=== PATIENT | male | born 1995 | race Caucasian/White ===

== ENCOUNTER 2022-09-11 09:16 | Emergency (ER) | payer BC ==
[2022-09-11 09:23] VITALS: TEMP 97.9
[2022-09-11] MEDS ORDERED: KETOROLAC 15 MG/ML 1 ML VIAL IVP STA (09:45)
[2022-09-11] MEDS ORDERED: DEXAMETHASONE SOD PHOSPHATE 10 MG/ML 1 ML VIAL IVP STA (09:45)
[2022-09-11] MEDS ORDERED: METOCLOPRAMIDE 5 MG/ML 2 ML VIAL IVP STA (09:45)
[2022-09-11] MEDS ORDERED: SODIUM CHLORIDE 0.9% 1,000 ML IV STA (09:45)
[2022-09-11] MEDS ORDERED: diphenhydrAMINE 50 MG/ML 1 ML VIAL IVP STA (09:45)
--- NOTE | 2022-09-11 10:01 | ED ---
Headache HPI - General Chief Complaint: Headache Stated Complaint: Migraine Time Seen by Provider: 09/11/22 09:25 Source: patient, RN notes reviewed Mode of arrival: ambulatory Limitations: no limitations - History of Present Illness Initial Comments: This is a 26-year-old male who presents to the emergency department for a migraine. Patient states that he has a history of migraines that have been present over the last several years. They're often in the right retro-orbital region. However, over the last several weeks, these have moved to the left retro-orbital and temporal region. While he has had these headaches for several years, he has never had any workup done such as imaging of the brain. He took Excedrin Migraine with no relief of symptoms. He has never been on any migraine preventative or abortive medications, and states that he always takes Excedrin Migraine. This migraine has been worse over the last 2-3 days. This morning, he developed a sharp pain and was laying on the floor due to the severity of his symptoms. He originally went to urgent care, who instructed him to come to the emergency department for further evaluation. He has associated photophobia and mild blurring of vision in the left eye. He is not currently nauseous, but states that he typically gets there. He would not describe this as the worst headache of his life. Denies any fevers, chills, sore throat, cough, dyspnea, chest pain, palp itations, abdominal pain, nausea, vomiting, diarrhea, or back pain. MD Complaint: headache Location: left, temporal, retro-orbital - Related Data Previous Rx's Medication Instructions Recorded Ketorolac [Toradol] 10 mg PO Q6HR PRN #12 tab 09/11/22 Ondansetron Odt [Zofran Odt] 4 mg PO Q8HR PRN #15 tab 09/11/22 SUMAtriptan succinate 100 mg PO DIRECTED PRN #20 09/11/22 tablet Allergies Allergy/AdvReac Type Severity Reaction Status Date / Time Penicillins Allergy Rash/Hives Verified 09/11/22 11:23 Review of Systems ROS Statement: Those systems with pertinent positive or pertinent negative responses have been documented in the HPI. ROS Other: All systems not noted in ROS Statement are negative. Past Medical History Additional Past Medical History / Comment(s): Migraine History of Any Multi-Drug Resistant Organisms: None Reported Past Surgical History: No Surgical Hx Reported Past Psychological History: No Psychological Hx Reported Smoking Status: Former smoker Past Alcohol Use History: Occasional Past Drug Use History: None Reported General Exam Limitations: no limitations General appearance: alert, in no apparent distress Head exam: Present: atraumatic, normocephalic, normal inspection Eye exam: Present: normal appearance, PERRL, EOMI. Absent: scleral icterus, conjunctival injection, periorbital swelling Pupils: Present: normal accommodation Respiratory exam: Present: normal lung sounds bilaterally. Absent: respiratory distress, wheezes, rales, rhonchi, stridor Cardiovascular Exam: Present: regular rate, normal rhythm, normal heart sounds. Absent: systolic murmur, diastolic murmur, rubs, gallop, clicks Neurological exam: Present: alert, oriented X3, CN II-XII intact Psychiatric exam: Present: normal affect, normal mood Skin exam: Present: warm, dry, intact, normal color. Absent: rash Course Vital Signs 09/11/22 09/11/22 09/11/22 09:21 10:47 12:38 Temperature 97.9 F Pulse Rate 78 87 84 Respiratory 20 18 18 Rate Blood Pressure 142/82 134/72 132/80 O2 Sat by Pulse 100 99 96 Oximetry Medical Decision Making - Medical Decision Making This is a 26-year-old male who presents to the emergency department for a headache. Was pt. sent in by a medical professional or institution? @ -No Did you speak to anyone other than the patient for history? @ -No Did you review nursing and triage notes? @ -Yes, and I agree, it is accurate with regards to the patient's symptoms. Were old charts reviewed? @ -No Differential Diagnosis? @ -Differential Headache: Migraine, tension, cluster, carbon monoxide, central venous thrombosis, pension karma temporal arteritis, acute closure glaucoma, intercranial hemorrhage, mastoiditis, sinusitis, head injury, this is not meant to be an all-inclusive list. CT interpreted by me (1pt min.)? @ -Computed tomography scan of the brain and CT angiogram of the head and neck obtained. My interpretation identifies no evidence of an acute intracranial hemorrhage, mass effect, or aneurysm. What testing was considered but not performed? (CT, X-rays, U/S, labs)? Why? @ -None What meds were considered but not given? Why? @ -None Did you discuss the management of the patient with other professionals? @ -No Did you reconcile home meds? @ -No Was smoking cessation discussed for >3mins.? @ -No Was critical care preformed (if so, how long)? @ -No Were there social determinants of health that impacted care today? How? (Homelessness, low income, unemployed, alcoholism, drug addiction, transportation, low edu. Level, literacy, decrease access to med. care, intermediate, rehab)? @ -No Was there de-escalation of care discussed even if they declined? (Discuss DNR or withdrawal of care, Hospice)? @ -No What co-morbidities impacted this encounter? (DM, HTN, Smoking, COPD, CAD, Cancer, CVA, Hep., AIDS, mental health diagnosis, sleep apnea, morbid obesity)? @ -Migraines Was patient admitted / discharged? @ -Discharged. Lab work obtained and found to be nonactionable. Given that the patient is having worsening migraines that have never been evaluated, computed tomography scan of the brain and CT angiogram of the head and neck were obtained. These revealed no acute findings to account for the patient's symptoms. He was given a migraine cocktail consisting of Toradol, Reglan, Decadron, and Benadryl along with a liter bolus of IV fluids. States that the symptoms resolved following medication administration. Prescription for sumatriptan, Toradol, and Zofran provided with dosing instructions reviewed. He was also given information for follow-up with local primary care providers. Advised he become established with one of them for ongoing medical management and reevaluation of migraines. Undiagnosed new problem with uncertain prognosis? @ -None Drug Therapy requiring intensive monitoring for toxicity (Heparin, Nitro, Insulin, Cardizem)? @ -None Were any procedures done? @ -None Diagnosis/symptom? @ -Headache Acute, or Chronic, or Acute on Chronic? @ -Acute on chronic Uncomplicated (without systemic symptoms) or Complicated (systemic symptoms)? @ -Uncomplicated Side effects of treatment? @ -None Exacerbation, Progression, or Severe Exacerbation] @ -Progression and Exacerbation Poses a threat to life or bodily function? @ -No Return precautions reviewed in depth, the patient is instructed to return to the emergency department with any new, worsening, or concerning symptoms. Patient verbalized understanding. This case was discussed in detail with the attending ED physician, Dr. Barr. Presentation, findings, and treatment plan discussed in detail as well. - Lab Data Result diagrams: 09/11/22 10:03 09/11/22 10:03 Lab Results 09/11/22 09/11/22 Range/Units 10:03 10:03 WBC 5.4 (3.8-10.6) k/uL RBC 5.41 (4.30-5.90) m/uL Hgb 16.6 (13.0-17.5) gm/dL Hct 48.6 (39.0-53.0) % MCV 89.9 (80.0-100.0) fL MCH 30.7 (25.0-35.0) pg MCHC 34.2 (31.0-37.0) g/dL RDW 12.1 (11.5-15.5) % Plt Count 249 (150-450) k/uL MPV 7.4 Neutrophils % 60 % Lymphocytes % 29 % Monocytes % 7 % Eosinophils % 2 % Basophils % 0 % Neutrophils # 3.3 (1.3-7.7) k/uL Lymphocytes # 1.5 (1.0-4.8) k/uL Monocytes # 0.4 (0-1.0) k/uL Eosinophils # 0.1 (0-0.7) k/uL Basophils # 0.0 (0-0.2) k/uL ESR 2 (0-15) mm/hr Sodium 140 (137-145) mmol/L Potassium 4.6 (3.5-5.1) mmol/L Chloride 104 (98-107) mmol/L Carbon Dioxide 29 (22-30) mmol/L Anion Gap 7 mmol/L BUN 16 (9-20) mg/dL Creatinine 1.00 (0.66-1.25) mg/dL Est GFR (CKD-EPI)AfAm >90 (>60 ml/min/1.73 sqM) Est GFR (CKD-EPI)NonAf >90 (>60 ml/min/1.73 sqM) Glucose 96 (74-99) mg/dL Calcium 9.4 (8.4-10.2) mg/dL Magnesium 2.1 (1.6-2.3) mg/dL Total Bilirubin 1.9 H (0.2-1.3) mg/dL AST 39 (17-59) U/L ALT 80 H (4-49) U/L Alkaline Phosphatase 70 (38-126) U/L C-Reactive Protein <0.5 (<1.0) mg/dL Total Protein 7.8 (6.3-8.2) g/dL Albumin 4.7 (3.5-5.0) g/dL - Radiology Data Radiology results: report reviewed, image reviewed Disposition Clinical Impression: Headache Disposition: HOME SELF-CARE Instructions (If sedation given, give patient instructions): Migraine Headache (ED), Acute Headache (ED) Additional Instructions: Return to the emergency department with any new, worsening, or concerning symptoms. If you get another migraine, take a sumatriptan at the onset of symptoms. Repeat dose in 2 hours if symptoms persist. Do not take more than 2 tablets in 24 hours. You can also try taking the Toradol in place of ibuprofen if needed for additional pain relief. You can also take the Zofran up to every 8 hours as needed for nausea and vomiting. Contact the primary care offices listed below and try become established with them for ongoing medical management. Prescriptions: SUMAtriptan succinate 100 mg PO DIRECTED PRN #20 tablet PRN Reason: Migraine Headache Ketorolac [Toradol] 10 mg PO Q6HR PRN #12 tab PRN Reason: Pain Ondansetron Odt [Zofran Odt] 4 mg PO Q8HR PRN #15 tab PRN Reason: Nausea And Vomiting Is patient prescribed a controlled substance at d/c from ED?: No Referrals: None,Stated [Primary Care Provider] - 1-2 days Hermelindo Dickens MD [STAFF PHYSICIAN] - 1-2 days Samanta Florian MD [REFERRING] - 1-2 days Verna Ford MD [STAFF PHYSICIAN] - 1-2 days Manuelito Beltrán Jr, DO [Doctor of Osteopathic Medicine] - 1-2 days Joey West MD [STAFF PHYSICIAN] - 1-2 days Colleen Horn NPC [STAFF PHYSICIAN] - 1-2 days Niurka Vasques DO [REFERRING] - 1-2 days
[2022-09-11 10:28] LABS: Basophils % (A) 0 %; Eosinophils # (A) 0.1 k/uL (0-0.7); Eosinophils % (A) 2 %; HCT 48.6 % (39.0-53.0); HGB 16.6 gm/dL (13.0-17.5); Lymphocytes # (A) 1.5 k/uL (1.0-4.8); Lymphocytes % (A) 29 %; MCH 30.7 pg (25.0-35.0); MCHC 34.2 g/dL (31.0-37.0); MCV 89.9 fL (80.0-100.0); Mean Platelet Volume 7.4; Monocytes # (A) 0.4 k/uL (0-1.0); Monocytes % (A) 7 %; Neutrophils # (A) 3.3 k/uL (1.3-7.7); Neutrophils % (A) 60 %; Platelet Count 249 k/uL (150-450); RBC 5.41 m/uL (4.30-5.90); RDW 12.1 % (11.5-15.5); WBC 5.4 k/uL (3.8-10.6)
[2022-09-11 10:43] LABS: ALT 80 U/L (4-49); AST 39 U/L (17-59); African American GFR (CKD) >90 (>60 ml/min/1.73 sqM); Albumin 4.7 g/dL (3.5-5.0); Alkaline Phosphatase 70 U/L (38-126); Anion Gap 7 mmol/L; Blood Urea Nitrogen 16 mg/dL (9-20); Calcium 9.4 mg/dL (8.4-10.2); Carbon Dioxide 29 mmol/L (22-30); Chloride 104 mmol/L (98-107); Glucose 96 mg/dL (74-99); Magnesium 2.1 mg/dL (1.6-2.3); Non-African American GFR(CKD) >90 (>60 ml/min/1.73 sqM); Potassium 4.6 mmol/L (3.5-5.1); Sodium 140 mmol/L (137-145); Total Bilirubin 1.9 mg/dL (0.2-1.3); Total Protein 7.8 g/dL (6.3-8.2)
[2022-09-11 10:48] VITALS: RESP 18
--- NOTE | 2022-09-11 10:54 | CT ---
EXAMINATION TYPE: CT brain wo con DATE OF EXAM: 09/11/2022 COMPARISON: None HISTORY: 26-year-old male migraine, headache, acute, visual changes TECHNIQUE: Examination was done in axial plane without intravenous contrast. Coronal and sagittal r econstructions performed. CT DLP: 1733.5 mGycm Automated exposure control for dose reduction was used. FINDINGS: There is no evidence of acute intracranial hemorrhage, acute ischemic changes, mass, mass-effect, or extra-axial fluid collection. There is no effacement of cerebral sulci or basal subarachnoid cister ns. There is no hydrocephalus. There is no midline shift. [place]-white matter distinction is preserv ed. Minimal 2 mm of cerebellar tonsillar ectopia within normal limits. Slight leftward nasal septal deviation. Paranasal sinuses and mastoid air cells are well pneumatized. Mild mucosal thickening anterior left ethmoid air cells. IMPRESSION: No acute intracranial abnormality seen.
--- NOTE | 2022-09-11 10:59 | CT ---
EXAMINATION TYPE: CT angio head neck DATE OF EXAM: 09/11/2022 COMPARISON: CT brain same day HISTORY: 26-year-old male headache, acute, visual changes TECHNIQUE: Contiguous axial scanning of the head and neck performed with IV Contrast, patient injecte d with 65 mL of Isovue 370. Coronal/sagittal reconstructions performed. 3-D reconstructions on a [employer] independent workstation. CT DLP: 1733.5 mGycm Automated exposure control for dose reduction was used. FINDINGS: Neck: Residual thymic tissue in the anterior mediastinum. Conventional arch vessel branching anatomy. Both vertebral arteries are patent throughout their course. Left vertebral artery slightly more domin ant. The bilateral common and internal carotid arteries are widely patent. Head: Dominant left vertebral artery. Otherwise, both vertebral and basilar arteries are patent. Normal tomi iation with a persistent origin left posterior cerebral artery. Remainder of the posterior circ ulation is patent. The internal carotid arteries and remainder of the anterior circulation are patent. No aneurysmal changes seen. Dural venous sinuses are patent. IMPRESSION: 1. NECK: WIDELY PATENT VERTEBRAL AND CAROTID ARTERIES OF THE NECK. 2. HEAD: NO LARGE VESSEL INTRACRANIAL ARTERIAL OCCLUSION, SIGNIFICANT STENOSIS, OR ANEURYSMAL CHANGE IS SEEN. ANATOMIC VARIATION WITH A DOMINANT LEFT VERTEBRAL ARTERY AND PERSISTENT ORIGIN LEFT PC A.
[2022-09-11 11:33] LABS: C Reactive Protein <0.5 mg/dL (<1.0)
[2022-09-11 11:37] LABS: Erythrocyte Sedimentation Rate 2 mm/hr (0-15)
[2022-09-11 12:39] VITALS: BP 132/80; PULSE 84
== END 2022-09-11 12:39 | disposition home or self-care (01) ==
LOC: EC 09:16
DX: G43.909 Migraine, unspecified, not intractable, without status migrainosus (principal); Z87.891 Personal history of nicotine dependence; Z88.0 Allergy status to penicillin
CPT/HCPCS: 36415; 80053; 85652; 83735; 85025; 86140; 70496; 70450; 70498; 99284; 96374; 96375 ×3; 96361; J1200; J1100; J2765; J1885; Q9967

== ENCOUNTER 2023-07-18 22:20 | Emergency (ER) | payer BC ==
[2023-07-18 22:59] VITALS: TEMP 98.4
--- NOTE | 2023-07-18 23:11 | ED ---
General Adult HPI - General Chief complaint: Anxiety Stated complaint: anxiety Time Seen by Provider: 07/18/23 22:45 Source: patient Mode of arrival: ambulatory Limitations: no limitations - History of Present Illness Initial comments: Dictation was produced using [employer] dictation software. please excuse any grammatical, word or spelling errors. Chief Complaint: 27-year-old male presents emergency department for anxiety reaction History of Present Illness: 27-year-old male he smokes marijuana daily. States that he suffers from chronic nausea. Has never been diagnosed with hyperemesis syndrome secondary to daily marijuana use for the last several years. States that he starts to feel anxious then he becomes nauseated which makes him even more anxious. He has seen a therapist in the past and also a psychiatrist to treat his anxiety however moved to town recently and has not established any care with any outpatient specialist. Denies any abdominal pain. Currently works at a dispensary. The ROS documented in this emergency department record has been reviewed and confirmed by me. Those systems with pertinent positive or negative responses have been documented in the HPI. All other systems are other negative and/or noncontributory. - Related Data Previous Rx's Medication Instructions Recorded Ketorolac [Toradol] 10 mg PO Q6HR PRN #12 tab 09/11/22 Ondansetron Odt [Zofran Odt] 4 mg PO Q8HR PRN #15 tab 09/11/22 RX: SUMAtriptan succinate 100 mg PO DIRECTED PRN #20 09/11/22 tablet Allergies Allergy/AdvReac Type Severity Reaction Status Date / Time Penicillins Allergy Rash/Hives Verified 09/11/22 11:23 Review of Systems ROS Statement: Those systems with pertinent positive or pertinent negative responses have been documented in the HPI. ROS Other: All systems not noted in ROS Statement are negative. Past Medical History Additional Past Medical History / Comment(s): Migraine History of Any Multi-Drug Resistant Organisms: None Reported Past Surgical History: No Surgical Hx Reported Past Psychological History: No Psychological Hx Reported Smoking Status: Former smoker Past Alcohol Use History: Occasional Past Drug Use History: None Reported General Exam - General Exam Comments Initial Comments: PHYSICAL EXAM: General Impression: Alert and oriented x3, not in acute distress HEENT: Normocephalic atraumatic, extra-ocular movements intact, pupils equal and reactive to light bilaterally, mucous membranes moist. Cardiovascular: Heart regular rate and rhythm Chest: Able to complete full sentences, no retractions, no tachypnea Abdomen: abdomen soft, non-tender, non-distended, no organomegaly Musculoskeletal: Pulses present and equal in all extremities, no peripheral edema Motor: no focal deficits noted Neurological: CN II-XII grossly intact, no focal motor or sensory deficits noted Skin: Intact with no visualized rashes Psych: Anxious Limitations: no limitations Course Vital Signs 07/18/23 07/18/23 07/19/23 22:30 23:15 00:28 Temperature 98.4 F Pulse Rate 90 88 70 Respiratory 22 16 Rate Blood Pressure 145/99 135/85 O2 Sat by Pulse 97 96 99 Oximetry Medical Decision Making - Medical Decision Making Was pt. sent in by a medical professional or institution (, PA, BUSINESS SYSTEMS ANALYST, urgent care, hospital, or detention...) When possible be specific @ -No Did you speak to anyone other than the patient for history (EMS, parent, family, police, friend...)? What history was obtained from this source @ -No Did you review nursing and triage notes (agree or disagree)? Why? @ -I reviewed and agree with nursing and triage notes Were old charts reviewed (outside hosp., previous admission, EMS record, old EKG, old radiological studies, urgent care reports/EKG's, detention records)? Report findings @ -No old charts were reviewed Differential Diagnosis (chest pain, altered mental status, abdominal pain women, abdominal pain men, vaginal bleeding, musculoskeletal, weakness, fever, dyspnea, syncope, headache, dizziness, GI bleed, back pain, seizure, CVA, palpatations, mental health)? @ -Differential Mental Health: Depression, anxiety, bipolar, psychosis, schizophrenia, borderline personality, situational depression, adjustment disorder, behavioral disorder, brain tumor, malingering, substance abuse, encephalopathy, medication reaction, dementia, hypothyroidism, degenerative neurologic disorder, lupus.... This is not meant to be all-inclusive list EKG interpreted by me (3pts min.). @ -None done X-rays interpreted by me (1pt min.). @ -None done CT interpreted by me (1pt min.). @ -None done U/S interpreted by me (1pt. min.). @ -None done What testing was considered but not performed or refused? (CT, X-rays, U/S, labs)? Why? @ -None What meds were considered but not given or refused? Why? @ -None Did you discuss the management of the patient with other professionals (professionals i.e. , PA, BUSINESS SYSTEMS ANALYST, lab, RT, psych nurse, social science research assistant, air defense artillery senior sergeant, teacher, hotel security officer, director case management)? Give summary @ -No Was smoking cessation discussed for >3mins.? @ -No Was critical care preformed (if so, how long)? @ -No Were there social determinants of health that impacted care today? How? (Homelessness, low income, unemployed, alcoholism, drug addiction, transportation, low edu. Level, literacy, decrease access to med. care, [facility], rehab)? @ -No Was there de-escalation of care discussed even if they declined (Discuss DNR or withdrawal of care, Hospice)? DNR status @ -No What co-morbidities impacted this encounter? (DM, HTN, Smoking, COPD, CAD, Cancer, CVA, ARF, Chemo, Hep., AIDS, mental health diagnosis, sleep apnea, morbid obesity)? @ -None Was patient admitted / discharged? Hospital course, mention meds given and route, prescriptions, significant lab abnormalities, going to OR and other pe rtinent info. @ -27-year-old male presents with anxiety reaction. Vital signs are stable. Patient significantly anxious at the bedside. Given oral Xanax. He did have some blood work done given that he is complaining of frequent nausea. His blood work was lost or mislabeled. We addressed this with the patient he did not want repeat blood work. States that he feels significantly better after having been given anxiolytic medications. Patient given mental health resources. Patient discharged. Undiagnosed new problem with uncertain prognosis? @ -No Drug Therapy requiring intensive monitoring for toxicity (Heparin, Nitro, Insulin, Cardizem)? @ -No Were any procedures done? @ -No Diagnosis/symptom? Acute, or Chronic, or Acute on Chronic? Uncomplicated (without systemic symptoms) or Complicated (systemic symptoms)? @ -Anxiety reaction Side effects of treatment? @ -No Exacerbation, Progression, or Severe Exacerbation? @ -No Poses a threat to life or bodily function? How? (Chest pain, [place], [place], pneumonia, PE, COPD, DKA, ARF, appy, cholecystitis, CVA, Diverticulitis, Homicidal, Suicidal, threat to staff... and all critical care pts) @ -No Disposition Clinical Impression: Acute anxiety Disposition: HOME SELF-CARE Instructions (If sedation given, give patient instructions): Generalized Anxiety Disorder (ED) Is patient prescribed a controlled substance at d/c from ED?: No Referrals: None,Stated [Primary Care Provider] - 1-2 days Time of Disposition: 01:28
[2023-07-18] MEDS: LORazepam 2 MG/ML INJ IV STA (23:50)
[2023-07-18] MEDS: ALPRAZolam 0.5 MG TAB PO STA (23:51)
[2023-07-19 00:53] VITALS: RESP 16
[2023-07-19 02:07] VITALS: BP 119/78; PULSE 60
== END 2023-07-19 01:36 | disposition home or self-care (01) ==
LOC: EC 22:20
DX: F41.9 Anxiety disorder, unspecified (principal); Z88.0 Allergy status to penicillin; Z87.891 Personal history of nicotine dependence
CPT/HCPCS: 99283

== ENCOUNTER 2023-07-19 03:40 | Inpatient (IN) | payer BC, MEDICAID, OTHER ==
--- NOTE | 2023-07-19 05:09 | ED ---
General Adult HPI - General Source: patient, RN notes reviewed, old records reviewed Mode of arrival: ambulatory Limitations: no limitations <Lefty Arias - Last Filed: 07/19/23 05:07> <Rafael Vasques - Last Filed: 07/19/23 14:55> - General Chief complaint: Psychiatric Symptoms Stated complaint: anxiety Time Seen by Provider: 07/19/23 03:45 - History of Present Illness Initial comments: 27-year-old male presenting for evaluation of anxiety, depression, and suicidal ideation. Patient denies suicide attempt. He does report an ongoing issue with nausea associated with the symptoms. He admits to marijuana use. Patient had been seen in the emergency department earlier and was given anxiolytic medi cation which did not significantly improve his symptoms. (Lefty Arias) - Related Data Home Medications Medication Instructions Recorded Confirmed No Known Home Medications 07/19/23 07/19/23 Allergies Allergy/AdvReac Type Severity Reaction Status Date / Time Penicillins Allergy Rash/Hives Verified 07/19/23 13:45 Review of Systems ROS Other: All systems not noted in ROS Statement are negative. <Lefty Arias - Last Filed: 07/19/23 05:07> ROS Other: All systems not noted in ROS Statement are negative. <Rafael Vasques - Last Filed: 07/19/23 14:55> ROS Statement: Those systems with pertinent positive or pertinent negative responses have been documented in the HPI. Past Medical History Additional Past Medical History / Comment(s): Migraine History of Any Multi-Drug Resistant Organisms: None Reported Past Surgical History: Tonsillectomy Past Psychological History: Anxiety, Depression Smoking Status: Current some day smoker Past Alcohol Use History: Occasional Past Drug Use History: None Reported, Marijuana <Lefty Arias - Last Filed: 07/19/23 05:07> General Exam Limitations: no limitations General appearance: alert, anxious Head exam: Present: atraumatic, normocephalic Eye exam: Present: normal appearance, PERRL ENT exam: Present: normal exam Neck exam: Present: normal inspection. Absent: tenderness, meningismus Respiratory exam: Present: normal lung sounds bilaterally. Absent: respiratory distress, wheezes Cardiovascular Exam: Present: regular rate, normal rhythm GI/Abdominal exam: Present: soft. Absent: distended, tenderness, guarding Extremities exam: Present: normal inspection, normal capillary refill Neurological exam: Present: alert, oriented X3 Psychiatric exam: Present: depressed, anxious, suicidal ideation Skin exam: Present: warm, dry, intact. Absent: cyanosis, diaphoretic, erythema <JosuesusyhasmukhLefty Sacha - Last Filed: 07/19/23 05:07> Course <JosuesusyhasmukhLefty Sacha - Last Filed: 07/19/23 05:07> Vital Signs 07/19/23 04:00 Temperature 98.2 F Pulse Rate 88 Respiratory 30 H Rate Blood Pressure 152/78 O2 Sat by Pulse 98 Oximetry - Reevaluation(s) Reevaluation #1: 07/19/23 05:09 Clear for EPS (Lefty Arias) Medical Decision Making <Lefty Arias - Last Filed: 07/19/23 05:07> - Lab Data Result diagrams: 07/19/23 13:54 07/19/23 13:54 <Rafael Vasques - Last Filed: 07/19/23 14:55> - Medical Decision Making Was pt. sent in by a medical professional or institution (, PA, CATTERY OPERATOR, urgent care, hospital, or [facility]...) When possible be specific @ -No Did you speak to anyone other than the patient for history (EMS, parent, family, police, friend...)? What history was obtained from this source @ -No Did you review nursing and triage notes (agree or disagree)? Why? @ -I reviewed and agree with nursing and triage notes Were old charts reviewed (outside hosp., previous admission, EMS record, old EKG, old radiological studies, urgent care reports/EKG's, [facility] records)? Report findings @ -No old charts were reviewed Differential Diagnosis (chest pain, altered mental status, abdominal pain women, abdominal pain men, vaginal bleeding, weakness, fever, dyspnea, syncope, headache, dizziness, GI bleed, back pain, seizure, CVA, palpatations, mental health, musculoskeletal)? @ -Differential Mental Health Depression, anxiety, bipolar, psychosis, schizophrenia, borderline personality, situational depression, adjustment disorder, behavioral disorder, brain tumor, malingering, substance abuse, encephalopathy, medication reaction, dementia, hypothyroidism, degenerative neurologic disorder, lupus.... This is not meant to be all-inclusive list EKG interpreted by me (3pts min.). @ -As above X-rays interpreted by me (1pt min.). @ -None done CT interpreted by me (1pt min.). @ -None done U/S interpreted by me (1pt. min.). @ -None done What testing was considered but not performed or refused? (CT, X-rays, U/S, labs)? Why? @ -None What meds were considered but not given or refused? Why? @ -None Did you discuss the management of the patient with other professionals (professionals i.e. , PA, CATTERY OPERATOR, lab, RT, psych nurse, social worker assistant, city dispatch supervisor, teacher, military police officer, embedded case manager)? Give summary @ -No Was smoking cessation discussed for >3mins.? @ -No Was critical care preformed (if so, how long)? @ -No Were there social determinants of health that impacted care today? How? (Homelessness, low income, unemployed, alcoholism, drug addiction, transportation, low edu. Level, literacy, decrease access to med. care, shelter, rehab)? @ -No Was there de-escalation of care discussed even if they declined (Discuss DNR or withdrawal of care, Hospice)? DNR status @ -No What co-morbidities impacted this encounter? (DM, HTN, Smoking, COPD, CAD, Cancer, CVA, ARF, Chemo, Hep., AIDS, mental health diagnosis, sleep apnea, morbid obesity)? @ -Anxiety, depression Was patient admitted / discharged? Hospital course, mention meds given and route, prescriptions, significant lab abnormalities, going to OR and other pertinent info. @ -[Clear for mental health evaluation, awaiting EPS evaluation, care signed o ut at shift change. (Lefty Arias) Patient is a 27-year-old male who is pending EPS evaluation. Cleared medically by the prior provider. Presents with anxiety, suicidal ideations. EPS and psychiatry evaluated the patient and determined that he does meet inpatient c riteria. Patient is willing to sign himself in. Patient will be admitted to inpatient psychiatry for further treatment. Diagnosis/symptom? @ -Encounter for psychiatric evaluation, and anxiety, suicidal ideations Acute, or Chronic, or Acute on Chronic? @ -Acute Uncomplicated (without systemic symptoms) or Complicated (systemic symptoms)? @ -Complicated Side effects of treatment? @ -None Exacerbation, Progression, or Severe Exacerbation] @ -No Poses a threat to life or bodily function? @ -Yes (Rafael Vasques) - Lab Data Lab Results 07/19/23 07/19/23 07/19/23 Range/Units 13:54 13:54 13:54 WBC 8.5 (3.8-10.6) k/uL RBC 4.88 (4.30-5.90) m/uL Hgb 15.3 (13.0-17.5) gm/dL Hct 43.4 (39.0-53.0) % MCV 88.8 (80.0-100.0) fL MCH 31.3 (25.0-35.0) pg MCHC 35.3 (31.0-37.0) g/dL RDW 12.2 (11.5-15.5) % Plt Count 266 (150-450) k/uL MPV 7.7 Neutrophils % 77 % Lymphocytes % 16 % Monocytes % 5 % Eosinophils % 0 % Basophils % 0 % Neutrophils # 6.5 (1.3-7.7) k/uL Lymphocytes # 1.3 (1.0-4.8) k/uL Monocytes # 0.4 (0-1.0) k/uL Eosinophils # 0.0 (0-0.7) k/uL Basophils # 0.0 (0-0.2) k/uL Sodium 140 (137-145) mmol/L Potassium 4.0 (3.5-5.1) mmol/L Chloride 105 (98-107) mmol/L Carbon Dioxide 22 (22-30) mmol/L Anion Gap 13 mmol/L BUN 15 (9-20) mg/dL Creatinine 0.92 (0.66-1.25) mg/dL Est GFR (CKD-EPI)AfAm >90 (>60 ml/min/1.73 sqM) Est GFR (CKD-EPI)NonAf >90 (>60 ml/min/1.73 sqM) Glucose 94 (74-99) mg/dL Calcium 9.5 (8.4-10.2) mg/dL Total Bilirubin 6.6 H (0.2-1.3) mg/dL AST 27 (17-59) U/L ALT 26 (4-49) U/L Alkaline Phosphatase 73 (38-126) U/L Total Protein 7.7 (6.3-8.2) g/dL Albumin 4.9 (3.5-5.0) g/dL Influenza Type A (PCR) Not Detected (Not Detectd) Influenza Type B (PCR) Not Detected (Not Detectd) RSV (PCR) Not Detected (Not Detectd) SARS-CoV-2 (PCR) Not Detected (Not Detectd) Disposition <Lefty Arias - Last Filed: 07/19/23 05:07> <Rafael Vasques - Last Filed: 07/19/23 14:55> Clinical Impression: Suicidal ideation, Encounter for psychiatric assessment, Anxiety Disposition: ADMITTED IP TO THIS HOSP Condition: Stable Referrals: None,Stated [Primary Care Provider] - 1-2 days
[2023-07-19] MEDS: ONDANSETRON 4 MG/2 ML VIAL IM STA (10:15)
[2023-07-19] MEDS: LORazepam 2 MG/ML INJ IM STA (11:31)
[2023-07-19 14:07] LABS: Basophils % (A) 0 %; Eosinophils % (A) 0 %; HCT 43.4 % (39.0-53.0); HGB 15.3 gm/dL (13.0-17.5); Lymphocytes # (A) 1.3 k/uL (1.0-4.8); Lymphocytes % (A) 16 %; MCH 31.3 pg (25.0-35.0); MCHC 35.3 g/dL (31.0-37.0); MCV 88.8 fL (80.0-100.0); Mean Platelet Volume 7.7; Monocytes # (A) 0.4 k/uL (0-1.0); Monocytes % (A) 5 %; Neutrophils # (A) 6.5 k/uL (1.3-7.7); Neutrophils % (A) 77 %; Platelet Count 266 k/uL (150-450); RBC 4.88 m/uL (4.30-5.90); RDW 12.2 % (11.5-15.5); WBC 8.5 k/uL (3.8-10.6)
[2023-07-19 14:23] LABS: ALT 26 U/L (4-49); AST 27 U/L (17-59); African American GFR (CKD) >90 (>60 ml/min/1.73 sqM); Albumin 4.9 g/dL (3.5-5.0); Alkaline Phosphatase 73 U/L (38-126); Anion Gap 13 mmol/L; Blood Urea Nitrogen 15 mg/dL (9-20); Calcium 9.5 mg/dL (8.4-10.2); Carbon Dioxide 22 mmol/L (22-30); Chloride 105 mmol/L (98-107); Glucose 94 mg/dL (74-99); Non-African American GFR(CKD) >90 (>60 ml/min/1.73 sqM); Sodium 140 mmol/L (137-145); Total Bilirubin 6.6 mg/dL (0.2-1.3); Total Protein 7.7 g/dL (6.3-8.2)
[2023-07-19] MEDS ORDERED: ACETAMINOPHEN TAB 325 MG TAB PO PRN (15:14)
[2023-07-19] MEDS ORDERED: IBUPROFEN 600 MG TAB PO PRN (15:14)
[2023-07-19] MEDS ORDERED: MAGNESIUM HYDROXIDE 2,400 MG/30 ML CUP PO PRN (15:14)
[2023-07-19] MEDS ORDERED: HALOPERIDOL LACTATE 5 MG/ML 1 ML VIAL IM PRN (15:14)
[2023-07-19] MEDS ORDERED: MAG HYDROX/AL HYDROX/SIMETH 355 ML BOTTLE PO PRN (15:14)
[2023-07-19] MEDS ORDERED: haloperidoL 5 MG TAB PO PRN (15:18)
[2023-07-19] MEDS: LORazepam 1 MG TAB PO PRN (15:32)
[2023-07-19] MEDS: traZODone HCL 100 MG TAB PO PRN (21:22)
[2023-07-19] MEDS: LORazepam 2 MG/ML INJ IM PRN (21:22)
[2023-07-19 22:02] LABS: Amphetamine Screen,Urine Not Detected (NotDetected); Barbiturate Screen,Urine Not Detected (NotDetected); Benzodiazepines Screen,Urine Detected (NotDetected); Cocaine Screen,Urine Not Detected (NotDetected); Methadone Screen, Urine Not Detected (NotDetected); Opiate Screen,Urine Not Detected (NotDetected); Oxycodone Screen, Urine Not Detected (NotDetected); Phencyclidine Screen,Urine Not Detected (NotDetected); Tricyclic Antidepressant,Urine Not Detected (NotDetected); Urn Cannabinoid Scrn Detected (NotDetected)
--- NOTE | 2023-07-20 00:39 | P.CONS ---
History of Present Illness - Reason for Consult Consult date: 07/20/23 - History of Present Illness The patient is a 27-year-old male with a PMH of marijuana abuse and anxiety who presented to the emergency room with complaints of worsening anxiety. The patient was admitted to the mental health unit where he was seen and evaluated accompanied by mental health unit RN. Patient reports that due to multiple social stressors his mental health has gradually been deteriorating. He denied any physical complaints. Does report occasional social alcohol use but never heavy drinking. Reports recreational marijuana use. Denies experiencing chest discomfort, shortness of breath, fever, chills, cough, nausea, vomiting, abdominal pain, diarrhea. Review of systems: Pertinent positives and negatives as discussed in HPI, a complete review of systems was performed and all other systems are negative. Physical examination: General: non toxic, no distress, appears at stated age, normal weight Derm: no unusual rashes/lesions, no unusual ecchymoses, warm, dry Head: atraumatic, normocephalic, symmetric Eyes: EOMI, no lid lag, anicteric sclera ENT: Nose and ears atraumatic, no thrush, no pharyngeal erythema Neck: trachea midline, supple Mouth: no lip lesion, mucus membranes moist Cardiovascular: S1S2 reg, no murmur, no edema Lungs: CTA bilateral, no rhonchi, no rales , no accessory muscle use Abdominal: soft, nontender to palpation, no guarding Ext: no gross muscle atrophy, no contractures, Neuro: No gross focal neuro deficits noted Psych: Alert, oriented, appropriate affect Assessment: Hyperbilirubinemia Marijuana abuse Anxiety Imaging: None performed Data Review: Laboratory evaluation remarkable for total bilirubin elevated to 6.6 with urine toxicology positive for marijuana and benzodiazepines Plan: Obtain right upper quadrant ultrasound and monitor total bilirubin for now Patient currently asymptomatic Advised on importance of marijuana use cessation Defer management of anxiety to the primary psychiatry service Thank you for allowing us to participate in the care of this patient. We will follow peripherally. Do not hesitate to contact us with questions. Someone can be reached from the [facility] hospitalist group at all hours of the day at [phone]. Past Medical History Additional Past Medical History / Comment(s): Migraine History of Any Multi-Drug Resistant Organisms: None Reported Past Surgical History: Tonsillectomy Smoking Status: Current some day smoker Medications and Allergies Home Medications Medication Instructions Recorded Confirmed Type No Known Home Medications 07/19/23 07/19/23 History Allergies Allergy/AdvReac Type Severity Reaction Status Date / Time Penicillins Allergy Rash/Hives Verified 07/19/23 16:20 Physical Exam Vitals: Vital Signs Temp Pulse Pulse Pulse Resp BP BP 07/19/23 19:04 99 165/96 07/19/23 15:25 98.4 F 129 H 20 07/19/23 04:00 98.2 F 88 30 H 152/78 BP Pulse Ox 07/19/23 19:04 07/19/23 15:25 180/120 100 07/19/23 04:00 98 Intake and Output 07/19/23 07/19/23 07/20/23 14:59 22:59 06:59 Other: Weight 80.1 kg Results CBC & Chem 7: 07/19/23 13:54 07/19/23 13:54 Labs: Abnormal Lab Results - Last 24 Hours (Table) 07/19/23 07/19/23 Range/Units 13:54 21:37 Total Bilirubin 6.6 H (0.2-1.3) mg/dL U Benzodiazepines Scrn Detected H (NotDetected) U Marijuana (THC) Screen Detected H (NotDetected)
[2023-07-20] MEDS ORDERED: NICOTINE 14MG/24HR PATCH TRANSDERM SCH (09:00)
[2023-07-20] MEDS: PROCHLORPERAZINE 5 MG TAB PO PRN (09:19)
--- NOTE | 2023-07-20 10:25 | P.HP ---
Psychiatric H&P - . H&P Date: 07/20/23 History & Physical: Allergies Allergy/AdvReac Type Severity Reaction Status Date / Time Penicillins Allergy Rash/Hives Verified 07/19/23 16:20 Vital Signs Temp 98.4 F 07/19/23 15:25 Pulse 99 07/19/23 19:04 Resp 20 07/19/23 15:25 BP 165/96 07/19/23 19:04 Pulse Ox 100 07/19/23 15:25 FiO2 Intake & Output 07/19/23 07/20/23 07/20/23 18:59 06:59 18:59 Weight 80.1 kg Laboratory Last Values WBC 8.5 k/uL (3.8-10.6) 07/19/23 13:54 RBC 4.88 m/uL (4.30-5.90) 07/19/23 13:54 Hgb 15.3 gm/dL (13.0-17.5) 07/19/23 13:54 Hct 43.4 % (39.0-53.0) 07/19/23 13:54 MCV 88.8 fL (80.0-100.0) 07/19/23 13:54 MCH 31.3 pg (25.0-35.0) 07/19/23 13:54 MCHC 35.3 g/dL (31.0-37.0) 07/19/23 13:54 RDW 12.2 % (11.5-15.5) 07/19/23 13:54 Plt Count 266 k/uL (150-450) 07/19/23 13:54 MPV 7.7 07/19/23 13:54 Neutrophils % 77 % 07/19/23 13:54 Lymphocytes % 16 % 07/19/23 13:54 Monocytes % 5 % 07/19/23 13:54 Eosinophils % 0 % 07/19/23 13:54 Basophils % 0 % 07/19/23 13:54 Neutrophils # 6.5 k/uL (1.3-7.7) 07/19/23 13:54 Lymphocytes # 1.3 k/uL (1.0-4.8) 07/19/23 13:54 Monocytes # 0.4 k/uL (0-1.0) 07/19/23 13:54 Eosinophils # 0.0 k/uL (0-0.7) 07/19/23 13:54 Basophils # 0.0 k/uL (0-0.2) 07/19/23 13:54 Sodium 140 mmol/L (137-145) 07/19/23 13:54 Potassium 4.0 mmol/L (3.5-5.1) 07/19/23 13:54 Chloride 105 mmol/L (98-107) 07/19/23 13:54 Carbon Dioxide 22 mmol/L (22-30) 07/19/23 13:54 Anion Gap 13 mmol/L 07/19/23 13:54 BUN 15 mg/dL (9-20) 07/19/23 13:54 Creatinine 0.92 mg/dL (0.66-1.25) 07/19/23 13:54 Est GFR (CKD-EPI)AfAm >90 (>60 ml/min/1.73 sqM) 07/19/23 13:54 Est GFR (CKD-EPI)NonAf >90 (>60 ml/min/1.73 sqM) 07/19/23 13:54 Glucose 94 mg/dL (74-99) 07/19/23 13:54 Calcium 9.5 mg/dL (8.4-10.2) 07/19/23 13:54 Total Bilirubin 6.6 mg/dL (0.2-1.3) H 07/19/23 13:54 AST 27 U/L (17-59) 07/19/23 13:54 ALT 26 U/L (4-49) 07/19/23 13:54 Alkaline Phosphatase 73 U/L (38-126) 07/19/23 13:54 Total Protein 7.7 g/dL (6.3-8.2) 07/19/23 13:54 Albumin 4.9 g/dL (3.5-5.0) 07/19/23 13:54 Urine Opiates Screen Not Detected (NotDetected) 07/19/23 21:37 Ur Oxycodone Screen Not Detected (NotDetected) 07/19/23 21:37 Urine Methadone Screen Not Detected (NotDetected) 07/19/23 21:37 Ur Barbiturates Screen Not Detected (NotDetected) 07/19/23 21:37 U Tricyclic Antidepress Not Detected (NotDetected) 07/19/23 21:37 Ur Phencyclidine Scrn Not Detected (NotDetected) 07/19/23 21:37 Ur Amphetamines Screen Not Detected (NotDetected) 07/19/23 21:37 U Methamphetamines Scrn Not Detected (NotDetected) 07/19/23 21:37 U Benzodiazepines Scrn Detected (NotDetected) H 07/19/23 21:37 Urine Cocaine Screen Not Detected (NotDetected) 07/19/23 21:37 U Marijuana (THC) Screen Detected (NotDetected) H 07/19/23 21:37 Influenza Type A (PCR) Not Detected (Not Detectd) 07/19/23 13:54 Influenza Type B (PCR) Not Detected (Not Detectd) 07/19/23 13:54 RSV (PCR) Not Detected (Not Detectd) 07/19/23 13:54 SARS-CoV-2 (PCR) Not Detected (Not Detectd) 07/19/23 13:54 07/20/23 10:20 This is a going assessment on Artur Carson who is a 27-year-old male woman was currently hospitalized with severe anxiety depression agitation and restlessness nausea or vomiting and feelings of helplessness and hopelessness Patient states that he is being dealing with anxiety since early adolescence where he was treated with Cymbalta but made him more like a zombie He says that he now smokes marijuana all day He says that 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 Denies any suicidal or homicidal ideations but he does admit feeling helpless and hopeless Patient was hospitalized for intervention supportive care and pharmacotherapy for the severity of his depression as well as withdrawal symptoms. Past history personal and social history: Is as described above Patient states that he currently lives independently and denies any history of any psychiatric treatment or follow-up except for as described above He denies taking any medications at this time. He denies any history of any suicide attempts or plans Ental status examination reveals a young male who currently appears to be nauseous and was laying in bed with a bucket near him for the vomiting Patient is alert and oriented to time place and person Speech was clear coherent and relevant Patient appears anxious Thought processes are goal-directed sequential and logical There is no evidence of any overt psychosis Patient admits feeling helpless and hopeless but denies any suicidal ideations and plans Formal and operational judgment appears to be fair insight and his problem is partial Diagnostic impression adjustment disorder with mixed emotional features 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 Hyperemesis syndrome cannabis related Cannabis disorder severe Plan: The patient will be hospitalized on the unit for further evaluation and treatment Therapy will be focused on providing supportive care improving his coping abilities with a multimodal treatment Patient will also participate in on the kolb activities individual milieu group OT RT PT and pharmacotherapy Approximate the stay would be 1-3 weeks Patient would benefit from an addition of gabapentin starting with 300 mg 3 times a day and also recommend and We will also recommend N-acetyl cystine which has some therapeutic effect in the withdrawal symptoms Approximate the stay would be 5-7 days Edwin Forde M.D.
[2023-07-20 11:17] LABS: Basophils % (A) 0 %; Eosinophils % (A) 0 %; HCT 46.9 % (39.0-53.0); HGB 16.8 gm/dL (13.0-17.5); Lymphocytes # (A) 1.5 k/uL (1.0-4.8); Lymphocytes % (A) 16 %; MCH 32.4 pg (25.0-35.0); MCHC 35.8 g/dL (31.0-37.0); MCV 90.6 fL (80.0-100.0); Mean Platelet Volume 7.7; Monocytes # (A) 0.6 k/uL (0-1.0); Monocytes % (A) 6 %; Neutrophils # (A) 6.8 k/uL (1.3-7.7); Neutrophils % (A) 75 %; Platelet Count 299 k/uL (150-450); RBC 5.18 m/uL (4.30-5.90); RDW 12.3 % (11.5-15.5); WBC 9.1 k/uL (3.8-10.6)
[2023-07-20 11:28] LABS: ALT 26 U/L (4-49); AST 33 U/L (17-59); African American GFR (CKD) >90 (>60 ml/min/1.73 sqM); Albumin 5.5 g/dL (3.5-5.0); Alkaline Phosphatase 89 U/L (38-126); Anion Gap 18 mmol/L; Blood Urea Nitrogen 19 mg/dL (9-20); Carbon Dioxide 18 mmol/L (22-30); Chloride 104 mmol/L (98-107); Glucose 74 mg/dL (74-99); Non-African American GFR(CKD) >90 (>60 ml/min/1.73 sqM); Potassium 4.9 mmol/L (3.5-5.1); Sodium 140 mmol/L (137-145); Total Bilirubin 9.2 mg/dL (0.2-1.3); Total Protein 8.6 g/dL (6.3-8.2)
--- NOTE | 2023-07-20 12:29 | US ---
EXAMINATION TYPE: US abdomen limited DATE OF EXAM: 07/20/2023 COMPARISON: NONE CLINICAL INDICATION: Male, 27 years old with history of RUQ US; nausea and vomiting. TECHNIQUE: Multiple sonographic images of the right upper quadrant are obtained. FINDINGS: EXAM MEASUREMENTS: Liver Length: 14.7 cm Gallbladder Wall: .1 cm CBD: .3 cm Right Kidney: 9.8 x 4.3 x 3.6 cm Pancreas: Most of the pancreatic body and tail are obscured by bowel gas shadowing. Liver: wnl Gallbladder: wnl Evidence for sonographic Meraz's sign: no CBD: wnl Right Kidney: No hydronephrosis or masses seen IMPRESSION: Suboptimal visualization of pancreas. Otherwise, unremarkable sonographic examination of the right up per quadrant.
--- NOTE | 2023-07-20 14:48 | P.CONS ---
History of Present Illness - Reason for Consult Consult date: 07/20/23 Hyperbilirubinemia Requesting physician: Xin Clements - Chief Complaint Anxiety - History of Present Illness This is a pleasant 27-year-old male who presented to the emergency department yesterday for evaluation of anxiety depression and suicidal ideation. He was admitted to the mental health unit but also noted to have elevated total bilirubin. He has no major medical past history other than anxiety and depression. He is a smoker and reports marijuana use but only occasional alcohol use. He denies any history of any IV drug use currently or in the past. He denies any regular home medications, does take Imitrex as needed. Only [id number] medications he takes is occasional ibuprofen. He denies any history of known elevated bilirubin, no history of liver disease. He denies any abdominal pain, states that he does suffer from nausea and sometimes vomiting for months related to his anxiety. He states that the nausea has been so bad over the the last month and a half he has not been able to work and attributes it to his anxiety. He states once his anxiety is improved the nausea also improved. Denies any significant weight loss. Admitting total bilirubin 6.6 with a repeat today of 9.2. Gastroenterology was consulted for hyperbilirubinemia. Review of Systems REVIEW OF SYSTEMS: CARDIOPULMONARY: No chest pain or shortness of breath. Gastrointestinal: Denies any abdominal pain, no epigastric pain. Chronic f requent nausea, occasional vomiting. No hematemesis, coffee-ground emesis. No rectal bleeding, or melena. GENITOURINARY: No dysuria or hematuria. MUSCULOSKELETAL: Reports normal range of motion. SKIN: No rashes. No jaundice. ENDOCRINE: No chills, fevers. No excessive weight gain or loss. No polydipsia or polyuria. PSYCHIATRIC: Severe anxiety, depression, suicidal ideation. NEUROLOGY: No change in mental status. Denies dizziness, headache. ENT: Vision unremarkable. CONSTITUTIONAL: No recent weight loss. No fever, chills, night sweats. Past Medical History Additional Past Medical History / Comment(s): Migraine History of Any Multi-Drug Resistant Organisms: None Reported Past Surgical History: Tonsillectomy Smoking Status: Current some day smoker Medications and Allergies Home Medications Medication Instructions Recorded Confirmed Type No Known Home Medications 07/19/23 07/19/23 History Allergies Allergy/AdvReac Type Severity Reaction Status Date / Time Penicillins Allergy Rash/Hives Verified 07/19/23 16:20 Physical Exam Vitals: Vital Signs Temp Pulse Pulse Resp BP BP Pulse Ox 07/19/23 19:04 99 165/96 07/19/23 15:25 98.4 F 129 H 20 180/120 100 Intake and Output 07/19/23 07/20/23 07/20/23 22:59 06:59 14:59 Other: Weight 80.1 kg General appearance: The patient is alert, oriented, appears in no acute distress. HET: Head is normocephalic and atraumatic. Conjunctiva pink. Sclera icteric. Neck: Supple without lymphadenopathy. Trachea midline. Heart: Regular. Lungs: Equal expansion, normal respiratory effort. Abdomen: Soft, nontender, nondistended with bowel sounds. No guarding or rigidity. Skin: No rashes. Jaundice. Extremities: Normal skin color and turgor. No pedal edema. Neurological: No focal deficits. Alert and oriented x3. Patient appears anxious. Results CBC & Chem 7: 07/20/23 10:45 07/20/23 10:45 Labs: Abnormal Lab Results - Last 24 Hours (Table) 07/19/23 07/19/23 07/20/23 Range/Units 13:54 21:37 10:45 Carbon Dioxide 18 L (22-30) mmol/L Total Bilirubin 6.6 H 9.2 H (0.2-1.3) mg/dL Total Protein 8.6 H (6.3-8.2) g/dL Albumin 5.5 H (3.5-5.0) g/dL U Benzodiazepines Scrn Detected H (NotDetected) U Marijuana (THC) Screen Detected H (NotDetected) Comments: Abdominal ultrasound with no acute findings Assessment and Plan (1) Hyperbilirubinemia Narrative/Plan: 27-year-old admitted for psychiatric evaluation due to significant history of anxiety accompanied by nausea and sometimes vomiting. Patient admitted to the hospital for further psychiatric evaluation. He was noted to have elevated total bilirubin in the absence of elevated LFTs. No known history of elevated bilirubin in the past no history of liver disease and no family history that he is aware of. Increase in total bilirubin today two 9.2 from 6.6. Again LFTs have been normal. Patient states he did not really realize that he was yellow, no recent weight loss. States that it is common for him to have nausea and he has had nausea for months and sometimes vomiting related to his anxiety. They are worse as anxiety is so worse the nausea is. We will work patient up for possible Gilbert's syndrome and need to consider other possible congenital etio logies. Will get fractionated total bilirubin, hepatitis panel. Further recommendations forthcoming. Current Visit: Yes Status: Acute Code(s): E80.6 - OTHER DISORDERS OF BILIRUBIN METABOLISM SNOMED Code(s): 97516975 (2) Nausea & vomiting Current Visit: Yes Status: Acute Code(s): R11.2 - NAUSEA WITH VOMITING, UNSPECIFIED SNOMED Code(s): 33085990 (3) Anxiety Current Visit: Yes Status: Acute Code(s): F41.9 - ANXIETY DISORDER, UNSPECIFIED SNOMED Code(s): 42575502 Plan: 1. Continue symptomatic and supportive care 2. Antiemetics as needed 3. Fraction bilirubin 4. Hepatitis panel ordered 5. Continue medical management. Patient is stable to stay in the mental health unit at this time. 6. Further recommendations forthcoming based on clinical course Thank you for this consultation, we will continue to follow. Dr. Kyra Wang I agree with the dictator's note, documented as a scribe by Cecille BEAR.
[2023-07-20] MEDS: GABAPENTIN 300 MG CAP PO SCH (15:13)
[2023-07-20 16:38] LABS: Bilirubin, Delta 0.9 mg/dL (0.0-0.2); Bilirubin,Unconjugated 7.5 mg/dL (0.0-1.1); Total Bilirubin 8.4 mg/dL (0.2-1.3)
[2023-07-20 16:43] LABS: Chol/HDL Ratio 4.03 Ratio; LDL Cholesterol,Calculated 105.7 mg/dL (0.0-131.0); VLDL Calculation 14.64 mg/dL (5.00-40.00)
[2023-07-21 06:19] LABS: Hepatitis A Antibody IgM Nonreactive; Hepatitis B Core IgM Nonreactive; Hepatitis B Surface Antigen Nonreactive; Hepatitis C IgG Antibody Nonreactive
[2023-07-21 10:05] LABS: HCT 43.9 % (39.0-53.0); HGB 15.9 gm/dL (13.0-17.5); MCH 32.1 pg (25.0-35.0); MCHC 36.2 g/dL (31.0-37.0); MCV 88.7 fL (80.0-100.0); Mean Platelet Volume 7.6; Platelet Count 289 k/uL (150-450); RBC 4.95 m/uL (4.30-5.90); RDW 12.2 % (11.5-15.5); WBC 6.5 k/uL (3.8-10.6)
[2023-07-21 10:27] LABS: INR 1.1 (<1.2); Prothrombin Time 11.7 sec (10.0-12.5)
[2023-07-21 10:32] LABS: ALT 23 U/L (4-49); AST 28 U/L (17-59); African American GFR (CKD) >90 (>60 ml/min/1.73 sqM); Albumin 5.1 g/dL (3.5-5.0); Alkaline Phosphatase 76 U/L (38-126); Anion Gap 14 mmol/L; Blood Urea Nitrogen 16 mg/dL (9-20); Calcium 9.8 mg/dL (8.4-10.2); Carbon Dioxide 24 mmol/L (22-30); Chloride 101 mmol/L (98-107); Glucose 96 mg/dL (74-99); Non-African American GFR(CKD) >90 (>60 ml/min/1.73 sqM); Potassium 4.2 mmol/L (3.5-5.1); Sodium 139 mmol/L (137-145); Total Protein 8.3 g/dL (6.3-8.2)
[2023-07-21] MEDS ORDERED: hydrOXYzine pamoate 25 MG CAP PO PRN (12:20)
--- NOTE | 2023-07-21 12:25 | P.PN ---
Progress Note - Text Progress Note Date: 07/21/23 Interval History: Patient was seen wandering the hallways and was directable and agreeable to sp alicia with telegraphic typewriter operator chief in the office. Patient states he is no longer feeling anxious, and that he feels good. Patient is sleeping good at night, and his appetite is good. Patient is focused on discharge. He states he wants to go home. At this time patient denies any suicidal or homicidal ideations, intent or plan. Patient denies any auditory, visual hallucinations and denies any paranoia or delusions. Patient denies any side effects from the medications and has been compliant with meds. Mental Status Exam: General Appearance: Patient appears to be stated age is alert, directable, and cooperative. Behavior: Patient is calmly seated without any agitated behavior. Superficial at times. Poor eye contact. Speech: Patient's speech is fluent and nonpressured. Mood/Affect: Mood is improving mildly, affect is congruent and constricted. Suicidality/Homicidality: Patient denies having any suicidal or homicidal ideation intent or plan. Perceptions: Patient denies any visual hallucinations and denies any auditory hallucinations Though content/process: There is no evidence of any delusional thought content and thought process is linear and goal-directed. Focused on discharge, minimizing, Memory and concentration: AOX3, grossly intact for the purposes of this session Judgment and insight: Improving mildly Assessment Adjustment disorder Anxiety disorder unspecified Cannabis disorder severe Nicotine dependence Plan: -Patient continues to meet criteria for inpatient psychiatric admission for symptom stabilization and safety. Patient has signed adult voluntary form and medication consent and was placed in patient's chart. -Medications: d/c neuronton add Lexapro 5mg daily for mood/anxiety change trazodone to scheduled, Visteral 25mg [id number] prn for anxiety. -When necessary Ativan and Haldol for agitation/aggression. -NRT -nicotine patch -SW on board for discharge planning. Encouraged the patient to participate in milieu. Possible discharge end of the week versus early next week.
[2023-07-21] MEDS: ESCITALOPRAM 5 MG TAB PO SCH (13:55)
--- NOTE | 2023-07-21 14:54 | P.PN ---
Subjective Progress Note Date: 07/21/23 Principal diagnosis: Hyperbilirubinemia This is a pleasant 27-year-old male who presented to the emergency department yesterday for evaluation of anxiety depression and suicidal ideation. He was admitted to the mental health unit but also noted to have elevated total bilirubin. He has no major medical past history other than anxiety and depression. He is a smoker and reports marijuana use but only occasional alcohol use. He denies any history of any IV drug use currently or in the past. He denies any regular home medications, does take Imitrex as needed. Only [id number] medications he takes is occasional ibuprofen. He denies any history of known elevated bilirubin, no history of liver disease. He denies any abdominal pain, states that he does suffer from nausea and sometimes vomiting for months related to his anxiety. He states that the nausea has been so bad over the the last month and a half he has not been able to work and attributes it to his anxiety. He states once his anxiety is improved the nausea also improved. Denies any significant weight loss. Admitting total bilirubin 6.6 with a repeat today of 9.2. Gastroenterology was consulted for hyperbilirubinemia. 07/21/2023 Patient seen and examined today as a follow-up for hyperbilirubinemia. He continues to deny any abdominal pain, no vomiting. Still has some mild nausea likely related to his anxiety but improving. Patient remembers that in the past when he was on Accutane he had to have blood drawn monthly and he was always noted to have elevated bilirubin. Fractionated bilirubin findings noted that total bilirubin 8.4 conjugated bilirubin 0.0 unconjugated bilirubin 7.5. Today's repeat total bilirubin 9.0 AST 28 ALT 23 alkaline phosphatase 76 and hepatitis panel nonreactive. Objective - Vital Signs Vital signs: Vital Signs Temp 98.6 F 07/21/23 08:33 Pulse 104 H 07/21/23 08:33 Resp 20 07/21/23 08:33 BP 137/83 07/21/23 08:33 Pulse Ox 100 07/19/23 15:25 FiO2 - Exam General appearance: The patient is alert, oriented, appears in no acute distress. HET: Head is normocephalic and atraumatic. Conjunctiva pink. Sclera anicteric. Neck: Supple without lymphadenopathy. Abdomen: Soft, nontender, nondistended with bowel sounds. No guarding or rigidity. Extremities: Normal skin color and turgor. No pedal edema Skin: No rashes, no jaundice Neurological: No focal deficits. Alert and oriented. - Labs CBC & Chem 7: 07/21/23 09:42 07/21/23 09:42 Labs: Abnormal Lab Results - Last 24 Hours (Table) 07/20/23 07/20/23 07/21/23 Range/Units 10:45 16:07 09:42 Total Bilirubin 8.4 H 9.0 H (0.2-1.3) mg/dL Unconjugated Bilirubin 7.5 H (0.0-1.1) mg/dL Delta Bilirubin 0.9 H (0.0-0.2) mg/dL Total Protein 8.3 H (6.3-8.2) g/dL Albumin 5.1 H (3.5-5.0) g/dL HDL Cholesterol 39.70 L (40.00-60.00) mg/dL Assessment and Plan (1) Hyperbilirubinemia Narrative/Plan: 27-year-old admitted for psychiatric evaluation due to significant history of anxiety accompanied by nausea and sometimes vomiting. Patient admitted to the hospital for further psychiatric evaluation. He was noted to have elevated total bilirubin in the absence of elevated LFTs. No known history of elevated bilirubin in the past no history of liver disease and no family history that he is aware of. Increase in total bilirubin today two 9.2 from 6.6. Again LFTs have been normal. Patient states he did not really realize that he was yellow, no recent weight loss. States that it is common for him to have nausea and he has had nausea for months and sometimes vomiting related to his anxiety. They are worse as anxiety is so worse the nausea is. We will work patient up for possible Gilbert's syndrome and need to consider other possible congenital etiologies. Will get fractionated total bilirubin, hepatitis panel. Further recommendations forthcoming. 07/21/2023 Fractionated bili consistent with unconjugated bilirubin most likely related to Gilbert's syndrome with elevated bilirubin secondary to increased stress. No further workup indicated. Patient can follow-up with gastroenterology in 4 weeks. Current Visit: Yes Status: Acute Code(s): E80.6 - OTHER DISORDERS OF BILIRUBIN METABOLISM SNOMED Code(s): 92709703 (2) Nausea & vomiting Current Visit: Yes Status: Acute Code(s): R11.2 - NAUSEA WITH VOMITING, UNSPECIFIED SNOMED Code(s): 00059704 (3) Anxiety Current Visit: Yes Status: Acute Code(s): F41.9 - ANXIETY DISORDER, UNSPECIFIED SNOMED Code(s): 93056297 Plan: 1. Continue symptomatic and supportive care 2. Antiemetics as needed 3. Fraction bilirubin 4. Hepatitis panel ordered and reviewed 5. No further workup indicated. Labs are reviewed with patient. Likely Gilbert's syndrome. Recommend outpatient follow-up in 4 weeks Thank you for this consultation, we will sign off at this time. Dr. Kyra Wang I agree with the dictator's note, documented as a scribe by Cecille Dugan.
[2023-07-21] MEDS: traZODone HCL 100 MG TAB PO SCH (21:38)
--- NOTE | 2023-07-22 11:53 | P.PN ---
Progress Note - Text Progress Note Date: 07/22/23 Interval History: Patient was seen wandering the hallways and was directable and agreeable to sp alicia with contract writer in the office. Patient states he is feeling good. He states he noticed his mood improving with the medication. Patient is sleeping good at night, and his appetite is good. Patient is focused on discharge. He states he wants to go home. He claims that he is feeling fairly anxious in the morning and sometimes nauseous, has been taking Compazine. At this time patient denies any suicidal or homicidal ideations, intent or plan. Patient denies any auditory, visual hallucinations and denies any paranoia or delusions. Patient denies any side effects from the medications and has been compliant with meds. Mental Status Exam: General Appearance: Patient appears to be stated age is alert, directable, and cooperative. Behavior: Patient is calmly seated without any agitated behavior. Superficial at times. Poor eye contact. mildly improving Speech: Patient's speech is fluent and nonpressured. Mood/Affect: Mood is improving mildly, affect is congruent and constricted. Suicidality/Homicidality: Patient denies having any suicidal or homicidal ideation intent or plan. Perceptions: Patient denies any visual hallucinations and denies any auditory hallucinations Though content/process: There is no evidence of any delusional thought content and thought process is linear and goal-directed. Focused on discharge, minimizing, Memory and concentration: AOX3, grossly intact for the purposes of this session Judgment and insight: Improving mildly Assessment Adjustment disorder Anxiety disorder unspecified Cannabis disorder severe Nicotine dependence Plan: -Patient continues to meet criteria for inpatient psychiatric admission for symptom stabilization and safety. Patient has signed adult voluntary form and medication consent and was placed in patient's chart. -Medications: increase Lexapro 10mg daily for mood/anxiety trazodone 100mg qhs, change Visteral 25mg qhs scheduled for anxiety. Visteral 25mg [id number] prn for anxiety -When necessary Ativan and Haldol for agitation/aggression. -NRT -nicotine patch -SW on board for discharge planning. Encouraged the patient to participate in milieu. Possible discharge early next week, if patient continues to improve.
[2023-07-22] MEDS: traZODone HCL 50 MG TAB PO SCH (21:20)
[2023-07-22] MEDS: hydrOXYzine pamoate 25 MG CAP PO SCH (21:21)
[2023-07-23] MEDS: ESCITALOPRAM 10 MG TAB PO SCH (08:07)
[2023-07-23] MEDS ORDERED: LORazepam 1 MG TAB PO PRN (11:48)
--- NOTE | 2023-07-23 12:44 | P.PN ---
Progress Note - Text Progress Note Date: 07/23/23 Interval History: Patient was seen wandering the hallways and was directable and agreeable to sp alicia with web content writer in the office. Patient states that today is the first day that he has woken up with out anxiety and nausea. He states he noticed his mood improving with the medication. Patient is sleeping good at night, states that last night he slept like a baby, and his appetite is good. Patient has accepted the need for help and stabilization. He states he wants to go home, however is okay with staying through the weekend to have his medication and mood completely stabilized. At this time patient denies any suicidal or homicidal ideations, intent or plan. Patient denies any auditory, visual hallucinations and denies any paranoia or delusions. Patient denies any side effects from the medications and has been compliant with meds. Mental Status Exam: General Appearance: Patient appears to be stated age is alert, directable, and cooperative. Patient has appropriate hygiene and grooming Behavior: Patient is calmly seated without any agitated behavior. Improving mildly. Speech: Patient's speech is fluent and nonpressured. Mood/Affect: Mood is improving mildly, affect is congruent and constricted. mildly improving Suicidality/Homicidality: Patient denies having any suicidal or homicidal ideation intent or plan. Perceptions: Patient denies any visual hallucinations and denies any auditory hallucinations Though content/process: There is no evidence of any delusional thought content and thought process is linear and goal-directed. Memory and concentration: AOX3, grossly intact for the purposes of this session Judgment and insight: Improving mildly Assessment Adjustment disorder Anxiety disorder unspecified Cannabis disorder severe Nicotine dependence Plan: -Patient continues to meet criteria for inpatient psychiatric admission for symptom stabilization and safety. Patient has signed adult voluntary form and medication consent and was placed in patient's chart. -Medications: Lexapro 10mg daily for mood/anxiety trazodone 100mg qhs, Visteral 25mg qhs scheduled for anxiety. Visteral 25mg [id number] prn for anxiety. Compazine as needed for nausea -When necessary Ativan and Haldol for agitation/aggression. -NRT -nicotine patch -SW on board for discharge planning. Encouraged the patient to participate in milieu. Possible discharge Wednesday, if patient continues to improve.
--- NOTE | 2023-07-24 17:33 | P.PN ---
Progress Note - Text Progress Note Date: 07/24/23 Interval history: Patient was seen socializing in the unge with peers and was directable and agreeable to speak with writer technical publications. He is calm, in pleasant mood. He reports his mood is "amazing". He denies depressed mood or anxiety. At this time patient denies any suicidal or homicidal ideation, intent or plan. Denies any auditory or visual hallucinations. Patient denies any side effects from the medications and has been compliant with meds, reports he is tolerating his meds well. Chart records sleep as 7+ hours last night; he reports he slept "like a baby". Mental status exam: General Appearance: Patient appears to be stated age, well-nourished adult male Behavior: No agitated behavior. Patient is calm and directable. Speech: Patient's speech is fluent and non-pressured. Mood/Affect: Mood is "amazing", affect is congruent and constricted. Suicidality/Homicidality: Patient denies having any suicidal or homicidal ideation intent or plan. Perceptions: Patient denies any auditory or visual hallucinations. Though content/process: There is no evidence of any delusional thought content and thought process is linear and goal-directed. Memory and concentration: AOX3, grossly intact for the purposes of this session Judgment and insight: improving mildly Assessment/Plan: Continue with current diagnosis. Patient continues to meet criteria for inpatient psychiatric admission for symptom stabilization and safety. Patient will be maintained on current psychotropic medication regimen. Monitor for haydee or hypomania. Monitor for medication compliance and for any psychotropic medication side effects. Will continue to monitor ongoing response to treatment. Encouraged participation in milieu.
--- NOTE | 2023-07-25 18:07 | P.PN ---
Progress Note - Text Progress Note Date: 07/25/23 Interval history: Patient was seen socializing in the unge with peers and was directable and agreeable to speak with writer editor. He is calm, in pleasant mood. He reports his mood, sleep and appetite are "great". He denies depressed mood or anxiety. At this time patient denies any suicidal or homicidal ideation, intent or plan. Denies any auditory or visual hallucinations. Patient denies any side effects from the medications and has been compliant with meds, reports he is tolerating his meds well. Mental status exam: General Appearance: Patient appears to be stated age, well-nourished adult male. Behavior: No agitated behavior. Patient is calm and directable. Speech: Patient's speech is fluent and non-pressured. Mood/Affect: Mood is "great", affect is congruent and constricted. Suicidality/Homicidality: Patient denies having any suicidal or homicidal ideation intent or plan. Perceptions: Patient denies any auditory or visual hallucinations. Though content/process: There is no evidence of any delusional thought content and thought process is linear and goal-directed. Memory and concentration: AOX3, grossly intact for the purposes of this session. Judgment and insight: Improving mildly. Assessment/Plan: Continue with current diagnosis. Patient continues to meet criteria for inpatient psychiatric admission for symptom stabilization and safety. Patient will be maintained on current psychotropic medication regimen. Monitor for haydee or hypomania. Monitor for medication compliance and for any psychotropic medication side effects. Will continue to monitor ongoing response to treatment. Encouraged participation in milieu.
[2023-07-26 07:08] VITALS: RESP 18; TEMP 98.1
[2023-07-26 08:51] VITALS: BP 152/103; PULSE 125
--- NOTE | 2023-07-26 11:26 | P.DS ---
Providers Date of admission: 07/19/23 15:10 Expected date of discharge: 07/26/23 Attending physician: Aramis Peralta MD Consults: 07/19/23 15:14 Consult Physician Routine Consulting Provider: Gricel Early Consult Reason/Comments: history and physical Do you want consulting provider notified?: Yes Primary care physician: Stated None - Discharge Diagnosis(es) (1) Adjustment disorder Current Visit: Yes Status: Acute Priority: High (2) Anxiety disorder, unspecified Current Visit: Yes Status: Acute Priority: High (3) Cannabis use disorder, severe, dependence Current Visit: Yes Status: Acute Priority: High (4) Nicotine dependence Current Visit: Yes Status: Acute Priority: Low Hospital Course: Admission HPI: Admission note was completed by Dr Forde "This is a going assessment on Artur Carson who is a 27-year-old male woman was currently hospitalized with severe anxiety depression agitation and restlessness nausea or vomiting and feelings of helplessness and hopelessness Patient states that he is being dealing with anxiety since early adolescence where he was treated with Cymbalta but made him more like a zombie He says that he now smokes marijuana all day He says that 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 Denies any suicidal or homicidal ideations but he does admit feeling helpless and hopeless. Patient was hospitalized for intervention supportive care and pharmacotherapy for the severity of his depression as well as withdrawal symptoms. " Hospital course: Upon admission to the unit patient was directable and agreeable to commence treatment and signed adult voluntary form. Patient got along well with other patients on the unit and followed unit protocol. Patient was compliant with the medications and denied any side effects throughout hospital course. Patient was started on Lexapro and increased to dose of 10 mg daily for mood/anxiety, traz odone 150 mg nightly for mood/insomnia, Vistaril 25 mg nightly for anxiety, Vistaril 25 mg twice daily as needed for anxiety, Compazine as needed for nausea, propranolol 20 mg daily for anxiety. Patient spoke of his stressors and engaged in therapy both group and individual. Patient was also seen by medical team for history and physical exam. Throughout the course of the hospitalization patient gradually improved with regards to mood, anxiety, sleep and became more future oriented with improved insight and judgment. On the day of discharge patient denied any suicidal or homicidal ideations intent or plan denied any auditory or visual hallucinations. Patient endorsed wanting to live for his health and family. The patient denied any access to guns or weapons. Patient denied any paranoia and did not endorse any delusions. Patient does have a significant history of substance abuse and was counseled on abstaining from all substances including alcohol and marijuana. Patient elected to do outpatient substance use treatment program through [facility]. Patient was also counseled on the medications and need for regular compliance and was encouraged to follow-up with their outpatient appointment for mental health and also for primary care. Prior to discharge a family meeting will be arranged by social media community manager to answer any questions and ensure safety upon discharge. Patient denies any access to guns or weapons. Mental status exam: General Appearance: Patient appears to be thin, longer hair, stated age is alert, pleasant, and cooperative. Patient is in no acute distress and has impro mustapha hygiene and grooming Behavior: Patient is calmly seated without any agitated behavior. Operative. Speech: Patient's speech is fluent and nonpressured. Mood/Affect: Patient reports their mood is "better", affect is congruent and euthymic. Suicidality/Homicidality: Patient denies having any suicidal or homicidal ideation intent or plan. Perceptions: Patient denies any auditory or visual hallucinations. Though content/process: There is no evidence of any delusional thought content and thought process is linear and goal-directed. More future oriented Memory and concentration: AOX3, grossly intact for the purposes of this session. Can spell "WORLD" backwards correctly. Judgment and insight: improved with guarded prognosis Impression: Adjustment disorder Anxiety disorder unspecified Cannabis disorder severe Nicotine dependence Plan: -Continue with discharge today as patient has improved and stabilized psychiatrically and is not currently an imminent threat to himself and/or others. -Continue medications: Lexapro 10 mg daily for mood/anxiety, trazodone 150 mg nightly for insomnia/mood, Vistaril scheduled 25 mg nightly, Vistaril 25 mg twice daily as needed for anxiety. Compazine as needed for nausea, propranolol 20 mg daily for anxiety/HR -Patient was counseled on the need for medication compliance and appropriate follow-up at mental health and also primary care for medical issues. Patient verbalized understanding and agreed. -Social work to arrange for and conduct family meeting to ensure safety upon discharge and answer any questions/concerns. Social work also to arrange for patients follow up appointments for psychiatric care along with follow up with primary care provider. -Patient counseled on abstaining from recreational drugs and marijuana and alcohol. Was informed/educated on the adverse effects on their physical and mental health. Patient verbally agreed and understood. -Patient was instructed to return to the hospital or seek immediate medical care if their psychiatric or medical symptoms do worsen or reoccur. ] Allergies Allergy/AdvReac Type Severity Reaction Status Date / Time Penicillins Allergy Rash/Hives Verified 07/19/23 16:20 Laboratory Results WBC 6.5 k/uL (3.8-10.6) 07/21/23 09:42 RBC 4.95 m/uL (4.30-5.90) 07/21/23 09:42 Hgb 15.9 gm/dL (13.0-17.5) 07/21/23 09:42 Hct 43.9 % (39.0-53.0) 07/21/23 09:42 MCV 88.7 fL (80.0-100.0) 07/21/23 09:42 MCH 32.1 pg (25.0-35.0) 07/21/23 09:42 MCHC 36.2 g/dL (31.0-37.0) 07/21/23 09:42 RDW 12.2 % (11.5-15.5) 07/21/23 09:42 Plt Count 289 k/uL (150-450) 07/21/23 09:42 MPV 7.6 07/21/23 09:42 Neutrophils % 75 % 07/20/23 10:45 Lymphocytes % 16 % 07/20/23 10:45 Monocytes % 6 % 07/20/23 10:45 Eosinophils % 0 % 07/20/23 10:45 Basophils % 0 % 07/20/23 10:45 Neutrophils # 6.8 k/uL (1.3-7.7) 07/20/23 10:45 Lymphocytes # 1.5 k/uL (1.0-4.8) 07/20/23 10:45 Monocytes # 0.6 k/uL (0-1.0) 07/20/23 10:45 Eosinophils # 0.0 k/uL (0-0.7) 07/20/23 10:45 Basophils # 0.0 k/uL (0-0.2) 07/20/23 10:45 PT 11.7 sec (10.0-12.5) 07/21/23 09:42 INR 1.1 (<1.2) 07/21/23 09:42 Sodium 139 mmol/L (137-145) 07/21/23 09:42 Potassium 4.2 mmol/L (3.5-5.1) 07/21/23 09:42 Chloride 101 mmol/L (98-107) 07/21/23 09:42 Carbon Dioxide 24 mmol/L (22-30) 07/21/23 09:42 Anion Gap 14 mmol/L 07/21/23 09:42 BUN 16 mg/dL (9-20) 07/21/23 09:42 Creatinine 1.09 mg/dL (0.66-1.25) 07/21/23 09:42 Est GFR (CKD-EPI)AfAm >90 (>60 ml/min/1.73 sqM) 07/21/23 09:42 Est GFR (CKD-EPI)NonAf >90 (>60 ml/min/1.73 sqM) 07/21/23 09:42 Glucose 96 mg/dL (74-99) 07/21/23 09:[address] Glu mg/dL 94 mg/dL 07/20/23 10:45 Hemoglobin A1c 4.9 % (<=6.0) 07/20/23 10:45 Calcium 9.8 mg/dL (8.4-10.2) 07/21/23 09:42 Total Bilirubin 9.0 mg/dL (0.2-1.3) H 07/21/23 09:42 Conjugated Bilirubin 0.0 mg/dL (0.0-0.3) 07/20/23 16:07 Unconjugated Bilirubin 7.5 mg/dL (0.0-1.1) H 07/20/23 16:07 Delta Bilirubin 0.9 mg/dL (0.0-0.2) H 07/20/23 16:07 AST 28 U/L (17-59) 07/21/23 09:42 ALT 23 U/L (4-49) 07/21/23 09:42 Alkaline Phosphatase 76 U/L (38-126) 07/21/23 09:42 Total Protein 8.3 g/dL (6.3-8.2) H 07/21/23 09:42 Albumin 5.1 g/dL (3.5-5.0) H 07/21/23 09:42 Triglycerides 73.20 mg/dL (0.00-149.00) 07/20/23 10:45 Cholesterol 160.00 mg/dL (0.00-200.00) 07/20/23 10:45 LDL Cholesterol, Calc 105.7 mg/dL (0.0-131.0) 07/20/23 10:45 VLDL Cholesterol, Calc 14.64 mg/dL (5.00-40.00) 07/20/23 10:45 HDL Cholesterol 39.70 mg/dL (40.00-60.00) L 07/20/23 10:45 Cholesterol/HDL Ratio 4.03 Ratio 07/20/23 10:45 TSH 0.989 mIU/L (0.465-4.680) 07/20/23 10:45 Urine Opiates Screen Not Detected (NotDetected) 07/19/23 21:37 Ur Oxycodone Screen Not Detected (NotDetected) 07/19/23 21:37 Urine Methadone Screen Not Detected (NotDetected) 07/19/23 21:37 Ur Barbiturates Screen Not Detected (NotDetected) 07/19/23 21:37 U Tricyclic Antidepress Not Detected (NotDetected) 07/19/23 21:37 Ur Phencyclidine Scrn Not Detected (NotDetected) 07/19/23 21:37 Ur Amphetamines Screen Not Detected (NotDetected) 07/19/23 21:37 U Methamphetamines Scrn Not Detected (NotDetected) 07/19/23 21:37 U Benzodiazepines Scrn Detected (NotDetected) H 07/19/23 21:37 Urine Cocaine Screen Not Detected (NotDetected) 07/19/23 21:37 U Marijuana (THC) Screen Detected (NotDetected) H 07/19/23 21:37 Hepatitis A IgM Ab Nonreactive 07/20/23 16:07 Hep Bs Antigen Nonreactive 07/20/23 16:07 Hep B Core IgM Ab Nonreactive 07/20/23 16:07 Hep C IgG Ab Nonreactive 07/20/23 16:07 Influenza Type A (PCR) Not Detected (Not Detectd) 07/19/23 13:54 Influenza Type B (PCR) Not Detected (Not Detectd) 07/19/23 13:54 RSV (PCR) Not Detected (Not Detectd) 07/19/23 13:54 SARS-CoV-2 (PCR) Not Detected (Not Detectd) 07/19/23 13:54 Vital Signs Temp 98.1 F 07/26/23 06:57 Pulse 125 H 07/26/23 08:48 Resp 18 07/26/23 08:11 BP 152/103 07/26/23 08:41 Pulse Ox 98 07/26/23 08:11 FiO2 Intake & Output 07/25/23 07/26/23 07/26/23 18:59 06:59 18:59 Weight 78.1 kg Health Concerns: Follow up with your PCP within 1-2 days regarding elevated blood pressures and heart rates while in the hospital. Plan - Discharge Summary Discharge Rx Participant: No New Discharge Prescriptions: New Prochlorperazine [Compazine] 5 mg PO DAILY PRN 7 Days #7 tab PRN Reason: Nausea And Vomiting Propranolol [Inderal] 20 mg PO DAILY 30 Days #30 tab Escitalopram [Lexapro] 10 mg PO DAILY 30 Days #30 tab traZODone HCL 150 mg PO HS 30 Days #30 tablet hydrOXYzine pamoate [Vistaril] 25 mg PO HS 30 Days #30 cap hydrOXYzine pamoate [Vistaril] 25 mg PO DAILY PRN 30 Days #30 cap PRN Reason: Anxiety Discharge Medication List Escitalopram [Lexapro] 10 mg PO DAILY 30 Days #30 tab 07/26/23 [Rx] Prochlorperazine [Compazine] 5 mg PO DAILY PRN 7 Days #7 tab 07/26/23 [Rx] Propranolol [Inderal] 20 mg PO DAILY 30 Days #30 tab 07/26/23 [Rx] hydrOXYzine pamoate [Vistaril] 25 mg PO DAILY PRN 30 Days #30 cap 07/26/23 [Rx] hydrOXYzine pamoate [Vistaril] 25 mg PO HS 30 Days #30 cap 07/26/23 [Rx] traZODone HCL 150 mg PO HS 30 Days #30 tablet 07/26/23 [Rx] Follow up Appointment(s)/Referral(s): [facility] [Outside] - 07/29/23 10:00 am (07/28@ 10am with Judy hWitfield 08/05@ 8:30am with Dr. Graff) Melanie Wang MD [STAFF PHYSICIAN] - 4 Weeks (Computer Forwarding System Markup Clerk follow up for elevated bilirubin) [facility] [NON-STAFF] - 1 Week Patient Instructions/Handouts: Depression (DC), Jaundice (DC), Anxiety (GEN), Hypertension in Adolescents (GEN) Activity/Diet/Wound Care/Special Instructions: Avoid the use of street drugs and alcohol. Take all medications as prescribed. When you are in need of refills on your medications, please contact your medical provider and/or outpatient psychiatrist/provider to have this done. Please go to your scheduled outpatient appointment for aftercare treatment. If symptoms return or become worse, call the crisis line at and/or go to the nearest emergency room for evaluation. National Suicide Hotline 992. Discharge Disposition: HOME SELF-CARE
[2023-07-26] MEDS: PROPRANOLOL 20 MG TAB PO SCH (11:51)
== END 2023-07-26 13:18 | disposition home or self-care (01) | DRG 754 ==
LOC: EC 03:40 → 3MHU 15:10
PROVIDERS: ADMIT Psychiatry & Neurology Psychiatry; ATTEND Psychiatry & Neurology Psychiatry
DX: F43.21 Adjustment disorder with depressed mood (principal); R17 Unspecified jaundice; R45.851 Suicidal ideations; F12.20 Cannabis dependence, uncomplicated; F41.9 Anxiety disorder, unspecified; R11.2 Nausea with vomiting, unspecified; Z11.52 Encounter for screening for COVID-19; E80.4 Gilbert syndrome; G47.00 Insomnia, unspecified; F17.200 Nicotine dependence, unspecified, uncomplicated; Z71.6 Tobacco abuse counseling; Z59.6 Low income; Z71.51 Drug abuse counseling and surveillance of drug abuser; Z71.41 Alcohol abuse counseling and surveillance of alcoholic; Z88.0 Allergy status to penicillin
CPT/HCPCS: 36415; 76705; 80053; 80061; 80074; 80306; 82075; 82248; 83036; 84443; 85025; 85027; 85610; 87636; 93005; 96372; 99285

== ENCOUNTER 2024-02-01 20:52 | Emergency (ER) | payer OTHER ==
[2024-02-01 21:11] VITALS: TEMP 98.6
[2024-02-01] MEDS: SODIUM CHLORIDE 0.9% 1,000 ML IV ONE (21:19)
[2024-02-01] MEDS: LORazepam 2 MG/ML INJ IV STA (21:21)
[2024-02-01] MEDS: ONDANSETRON 4 MG/2 ML VIAL IVP STA (21:23)
[2024-02-01 21:39] LABS: Basophils % (A) 0 %; Eosinophils % (A) 0 %; HCT 43.8 % (39.0-53.0); HGB 15.3 gm/dL (13.0-17.5); Lymphocytes % (A) 6 %; MCH 30.5 pg (25.0-35.0); MCHC 34.9 g/dL (31.0-37.0); MCV 87.4 fL (80.0-100.0); Mean Platelet Volume 7.6; Monocytes # (A) 0.6 k/uL (0-1.0); Monocytes % (A) 3 %; Neutrophils # (A) 14.8 k/uL (1.3-7.7); Neutrophils % (A) 89 %; Platelet Count 321 k/uL (150-450); RBC 5.01 m/uL (4.30-5.90); RDW 12.1 % (11.5-15.5); WBC 16.5 k/uL (3.8-10.6)
--- NOTE | 2024-02-01 21:53 | ED ---
General Adult HPI - General Chief complaint: Nausea/Vomiting/Diarrhea Stated complaint: NV Time Seen by Provider: 02/01/24 20:53 Source: patient, EMS, RN notes reviewed, old records reviewed Mode of arrival: EMS - History of Present Illness Initial comments: 28-year-old male presenting with nausea vomiting, abdominal pain. Symptoms have been present for the past 12 hours. Patient has had episodes similar to this in the past. Patient does admit to anxiety and states he feels quite anxious. He denies fever. He said multiple episodes of vomiting. Abdominal pain is predom inantly upper. - Related Data Previous Rx's Medication Instructions Recorded Escitalopram [Lexapro] 10 mg PO DAILY 30 Days #30 tab 07/26/23 Prochlorperazine [Compazine] 5 mg PO DAILY PRN 7 Days #7 tab 07/26/23 Propranolol [Inderal] 20 mg PO DAILY 30 Days #30 tab 07/26/23 hydrOXYzine pamoate [Vistaril] 25 mg PO DAILY PRN 30 Days #30 cap 07/26/23 hydrOXYzine pamoate [Vistaril] 25 mg PO HS 30 Days #30 cap 07/26/23 traZODone HCL 150 mg PO HS 30 Days #30 tablet 07/26/23 Allergies Allergy/AdvReac Type Severity Reaction Status Date / Time Penicillins Allergy Rash/Hives Verified 07/19/23 16:20 Review of Systems ROS Statement: Those systems with pertinent positive or pertinent negative responses have been documented in the HPI. ROS Other: All systems not noted in ROS Statement are negative. Past Medical History Additional Past Medical History / Comment(s): Migraine History of Any Multi-Drug Resistant Organisms: None Reported Past Surgical History: Tonsillectomy Past Psychological History: Anxiety, Depression Smoking Status: Current some day smoker General Exam General appearance: alert, anxious Head exam: Present: atraumatic, normocephalic Eye exam: Present: normal appearance, PERRL Neck exam: Present: normal inspection. Absent: tenderness, meningismus Respiratory exam: Present: normal lung sounds bilaterally. Absent: respiratory distress, wheezes Cardiovascular Exam: Present: regular rate, normal rhythm GI/Abdominal exam: Present: tenderness Extremities exam: Present: normal inspection Neurological exam: Present: alert, oriented X3, CN II-XII intact. Absent: motor sensory deficit Psychiatric exam: Present: anxious Skin exam: Present: warm, dry, intact Course Vital Signs 02/01/24 21:03 Temperature 98.6 F Pulse Rate 69 Respiratory 16 Rate Blood Pressure 136/84 O2 Sat by Pulse 94 L Oximetry Medical Decision Making - Medical Decision Making Was pt. sent in by a medical professional or institution (RACHEAL Beyer, UPHOLSTERER APPRENTICE, urgent care, hospital, or longterm...) When possible be specific @ -No Did you speak to anyone other than the patient for history (EMS, parent, family, police, friend...)? What history was obtained from this source @ -No Did you review nursing and triage notes (agree or disagree)? Why? @ -I reviewed and agree with nursing and triage notes Were old charts reviewed (outside hosp., previous admission, EMS record, old EKG, old radiological studies, urgent care reports/EKG's, longterm records)? Report findings @ -No old charts were reviewed Differential Abdominal Pain Men: Appendicitis, cholecystitis, diverticulosis, ischemic bowel, pancreatitis, hepatitis, UTI, gastroenteritis, AAA, incarcerated hernia, bowel obstruction, constipation, inflammatory bowel, hepatitis, peptic ulcer disease, splenic infarction, perforated viscus, testicular torsion, this is not meant to be an all-inclusive list EKG interpreted by me (3pts min.). @ -As above X-rays interpreted by me (1pt min.). @ -None done CT interpreted by me (1pt min.). @CT of the abdomen pelvis showing possibility of enteritis, no other acute findings U/S interpreted by me (1pt. min.). @ -None done What testing was considered but not performed or refused? (CT, X-rays, U/S, labs)? Why? @ -None What meds were considered but not given or refused? Why? @ -None Did you discuss the management of the patient with other professionals (professionals i.e. RACHEAL Beyer, UPHOLSTERER APPRENTICE, lab, RT, psych nurse, mental health social worker, taxi dancer, teacher, community service patrol officer, special education case manager)? Give summary @ -No Was smoking cessation discussed for >3mins.? @ -No Was critical care preformed (if so, how long)? @ -No Were there social determinants of health that impacted care today? How? (Homelessness, low income, unemployed, alcoholism, drug addiction, transportation, low edu. Level, literacy, decrease access to med. care, fci, rehab)? @ -No Was there de-escalation of care discussed even if they declined (Discuss DNR or withdrawal of care, Hospice)? DNR status @ -No What co-morbidities impacted this encounter? (DM, HTN, Smoking, COPD, CAD, Cancer, CVA, ARF, Chemo, Hep., AIDS, mental health diagnosis, sleep apnea, morbid obesity)? @ -[Marijuana use Was patient admitted / discharged? Hospital course, mention meds given and route, prescriptions, significant lab abnormalities, going to OR and other pertinent info. @ --year-old male with upper abdominal pain, , anxiety. Patient does a ppear anxious and is hyperventilating upon arrival. He admits to daily marijuana use. I do suspect this could be related to cannabis hyperemesis. Workup is initiated as well as symptomatic treatment. He has a leukocytosis and given the elevated white blood cell count I did perform CT imaging which was negative for acute intra-abdominal process with the exception of a mild enteritis. Patient reevaluated with improved symptoms with medication. Patient is instructed to abstain from marijuana use and follow closely with his primary care provider Undiagnosed new problem with uncertain prognosis? @ -No Drug Therapy requiring intensive monitoring for toxicity (Heparin, Nitro, Insulin, Cardizem)? @ -No Were any procedures done? @ -No Diagnosis/symptom? @ -[Abdominal pain, nausea vomiting Acute, or Chronic, or Acute on Chronic? @ -Acute Uncomplicated (without systemic symptoms) or Complicated (systemic symptoms)? @ -Default Side effects of treatment? @ -No Exacerbation, Progression, or Severe Exacerbation? @ -No Poses a threat to life or bodily function? How? (Chest pain, USA, PA, pneumonia, PE, COPD, DKA, ARF, appy, cholecystitis, CVA, Diverticulitis, Homicidal, Suicidal, threat to staff... and all critical care pts) @ -No - Lab Data Result diagrams: 02/01/24 21:17 02/01/24 21:17 Lab Results 02/01/24 02/01/24 02/01/24 Range/Units 21:17 21:17 23:00 WBC 16.5 H (3.8-10.6) k/uL RBC 5.01 (4.30-5.90) m/uL Hgb 15.3 (13.0-17.5) gm/dL Hct 43.8 (39.0-53.0) % MCV 87.4 (80.0-100.0) fL MCH 30.5 (25.0-35.0) pg MCHC 34.9 (31.0-37.0) g/dL RDW 12.1 (11.5-15.5) % Plt Count 321 (150-450) k/uL MPV 7.6 Neutrophils % 89 % Lymphocytes % 6 % Monocytes % 3 % Eosinophils % 0 % Basophils % 0 % Neutrophils # 14.8 H (1.3-7.7) k/uL Lymphocytes # 1.0 (1.0-4.8) k/uL Monocytes # 0.6 (0-1.0) k/uL Eosinophils # 0.0 (0-0.7) k/uL Basophils # 0.0 (0-0.2) k/uL Sodium 138 (137-145) mmol/L Potassium 5.1 (3.5-5.1) mmol/L Chloride 105 (98-107) mmol/L Carbon Dioxide 18 L (22-30) mmol/L Anion Gap 15 mmol/L BUN 15 (9-20) mg/dL Creatinine 0.95 (0.66-1.25) mg/dL Est GFR (CKD-EPI)AfAm >90 (>60 ml/min/1.73 sqM) Est GFR (CKD-EPI)NonAf >90 (>60 ml/min/1.73 sqM) Glucose 131 H (74-99) mg/dL Calcium 10.1 (8.4-10.2) mg/dL Magnesium 1.3 L (1.6-2.3) mg/dL Total Bilirubin 4.9 H (0.2-1.3) mg/dL AST 27 (17-59) U/L ALT 29 (4-49) U/L Alkaline Phosphatase 75 (38-126) U/L Total Protein 7.9 (6.3-8.2) g/dL Albumin 5.0 (3.5-5.0) g/dL Urine Color Light Yellow Urine Appearance Clear (Clear) Urine pH 8.5 H (5.0-8.0) Ur Specific [place] >1.050 H (1.001-1.035) Urine Protein Trace H (Negative) Urine Glucose (UA) Negative (Negative) Urine Ketones 2+ H (Negative) Urine Blood Negative (Negative) Urine Nitrite Negative (Negative) Urine Bilirubin Negative (Negative) Urine Urobilinogen 2.0 (<2.0) mg/dL Ur Leukocyte Esterase Negative (Negative) Urine Opiates Screen Not Detected (NotDetected) Ur Oxycodone Screen Not Detected (NotDetected) Urine Methadone Screen Not Detected (NotDetected) Ur Barbiturates Screen Not Detected (NotDetected) U Tricyclic Antidepress Not Detected (NotDetected) Ur Phencyclidine Scrn Not Detected (NotDetected) Ur Amphetamines Screen Not Detected (NotDetected) U Methamphetamines Scrn Not Detected (NotDetected) U Benzodiazepines Scrn Detected H (NotDetected) Urine Cocaine Screen Not Detected (NotDetected) U Marijuana (THC) Screen Detected H (NotDetected) Disposition Clinical Impression: Nausea & vomiting, Abdominal pain Disposition: HOME SELF-CARE Condition: Good Instructions (If sedation given, give patient instructions): Abdominal Pain (ED ), Acute Nausea and Vomiting (ED) Is patient prescribed a controlled substance at d/c from ED?: No Referrals: None,Stated [Primary Care Provider] - 1-2 days [facility] [NON-STAFF] - 1-2 days Time of Disposition: 00:45
[2024-02-01 21:59] LABS: AST 27 U/L (17-59); African American GFR (CKD) >90 (>60 ml/min/1.73 sqM); Alkaline Phosphatase 75 U/L (38-126); Anion Gap 15 mmol/L; Blood Urea Nitrogen 15 mg/dL (9-20); Calcium 10.1 mg/dL (8.4-10.2); Carbon Dioxide 18 mmol/L (22-30); Chloride 105 mmol/L (98-107); Glucose 131 mg/dL (74-99); Magnesium 1.3 mg/dL (1.6-2.3); Non-African American GFR(CKD) >90 (>60 ml/min/1.73 sqM); Potassium 5.1 mmol/L (3.5-5.1); Sodium 138 mmol/L (137-145); Total Bilirubin 4.9 mg/dL (0.2-1.3); Total Protein 7.9 g/dL (6.3-8.2)
[2024-02-01 22:06] LABS: ALT 29 U/L (4-49)
[2024-02-01 23:24] LABS: Appearance,Urine Clear (Clear); Bilirubin,Urine Negative (Negative); Blood,Urine Negative (Negative); Color,Urine Light Yellow; Glucose,Urine (UA) Negative (Negative); Ketones,Urine 2+ (Negative); Leukocyte Esterase,Urine Negative (Negative); Nitrite,Urine Negative (Negative); PH, Urine 8.5 (5.0-8.0); Protein,Urine Trace (Negative); Specific Gravity,Urine >1.050 (1.001-1.035)
[2024-02-02 00:07] LABS: Amphetamine Screen,Urine Not Detected (NotDetected); Barbiturate Screen,Urine Not Detected (NotDetected); Cocaine Screen,Urine Not Detected (NotDetected); Methadone Screen, Urine Not Detected (NotDetected); Opiate Screen,Urine Not Detected (NotDetected); Oxycodone Screen, Urine Not Detected (NotDetected); Urn Cannabinoid Scrn Detected (NotDetected)
[2024-02-02 00:08] LABS: Benzodiazepines Screen,Urine Detected (NotDetected); Phencyclidine Screen,Urine Not Detected (NotDetected); Tricyclic Antidepressant,Urine Not Detected (NotDetected)
--- NOTE | 2024-02-02 00:16 | CT ---
EXAM: CT Abdomen and Pelvis With Intravenous Contrast CLINICAL HISTORY: ITS.REASON CT Reason: ab pain TECHNIQUE: Axial computed tomography images of the abdomen and pelvis with intravenous contrast. CTDI is 13.9 mGy and DLP is 634.1 mGy-cm. This CT exam was performed using one or more of the following dose reduction techniques: automated exposure control, adjustment of the mA and/or kV according to patient size, and/or use of iterative reconstruction technique. COMPARISON: No relevant prior studies available. FINDINGS: Lung bases: Unremarkable. No mass. No consolidation. ABDOMEN: Liver: Unremarkable. No mass. Gallbladder and bile ducts: Unremarkable. No calcified stones. No ductal dilation. Pancreas: Unremarkable. No mass. No ductal dilation. Spleen: Unremarkable. No splenomegaly. Adrenals: Unremarkable. No mass. Kidneys and ureters: Unremarkable. No solid mass. No hydronephrosis. Stomach and bowel: Mild wall thickening of small bowel, concerning for enteritis. No obstruction. PELVIS: Appendix: No findings to suggest acute appendicitis. Bladder: Unremarkable. No mass. Reproductive: Unremarkable as visualized. ABDOMEN and PELVIS: Intraperitoneal space: Unremarkable. No free air. No significant fluid collection. Bones/joints: No acute fracture. No dislocation. Soft tissues: Unremarkable. Vasculature: Unremarkable. No abdominal aortic aneurysm. Lymph nodes: Unremarkable. No enlarged lymph nodes. IMPRESSION: Mild wall thickening of small bowel, concerning for enteritis.
[2024-02-02] MEDS: METOCLOPRAMIDE 5 MG/ML 2 ML VIAL IVP STA (01:13)
[2024-02-02] MEDS: MAG HYDROX/AL HYDROX/SIMETH 30 ML, HYOSCYAMINE ELIXIR 10 ML, LIDOCAINE VISCOUS 2% 10 ML PO STA (01:33)
[2024-02-02] MEDS: FAMOTIDINE 20 MG/2 ML VIAL IV STA (01:35)
[2024-02-02 01:53] VITALS: BP 108/66; PULSE 60; RESP 18
== END 2024-02-02 01:53 | disposition home or self-care (01) ==
LOC: EC 20:52
CPT/HCPCS: 36415; 74177; 80053; 80306; 81003; 83735; 85025; 96361; 96374; 96375; 99284

== ENCOUNTER 2024-02-13 16:20 | Emergency (ER) | payer OTHER ==
[2024-02-13 16:42] VITALS: BP 130/86; PULSE 94; RESP 18; TEMP 97.7
--- NOTE | 2024-02-13 17:09 | ED ---
Psych HPI - General Chief Complaint: Psychiatric Symptoms Stated Complaint: Anxiety Time Seen by Provider: 02/13/24 17:08 Source: patient Mode of arrival: ambulatory - History of Present Illness Initial Comments: Quick note: 28-year-old male presenting with chief complaint of anxiety. Reports that he does not think his medication is working anymore. He reports suicidal ideation with no plan. He is tearful while obtaining the history. No SI or HI - Related Data Previous Rx's Medication Instructions Recorded Escitalopram [Lexapro] 10 mg PO DAILY 30 Days #30 tab 07/26/23 Prochlorperazine [Compazine] 5 mg PO DAILY PRN 7 Days #7 tab 07/26/23 Propranolol [Inderal] 20 mg PO DAILY 30 Days #30 tab 07/26/23 hydrOXYzine pamoate [Vistaril] 25 mg PO DAILY PRN 30 Days #30 cap 07/26/23 hydrOXYzine pamoate [Vistaril] 25 mg PO HS 30 Days #30 cap 07/26/23 traZODone HCL 150 mg PO HS 30 Days #30 tablet 07/26/23 Allergies Allergy/AdvReac Type Severity Reaction Status Date / Time Penicillins Allergy Rash/Hives Verified 02/13/24 16:42 Review of Systems ROS Statement: Those systems with pertinent positive or pertinent negative responses have been documented in the HPI. ROS Other: All systems not noted in ROS Statement are negative. Past Medical History Additional Past Medical History / Comment(s): Migraine History of Any Multi-Drug Resistant Organisms: None Reported Past Surgical History: Tonsillectomy Past Psychological History: Anxiety, Depression Smoking Status: Current some day smoker General Exam - General Exam Comments Initial Comments: Visual Physical Exam Vital signs reviewed General: Well-nourished, anxious, tearful Head: Normocephalic, atraumatic Eyes: PERRLA, EOMI ENT: Airway patent Chest: Nonlabored breathing Skin: No visual rash, normal skin tone Neuro: Alert and oriented 3 Musculoskeletal: No gross abnormalities Limitations: no limitations Course Vital Signs 02/13/24 16:38 Temperature 97.7 F Pulse Rate 94 Respiratory 18 Rate Blood Pressure 130/86 O2 Sat by Pulse 98 Oximetry Medical Decision Making - Medical Decision Making I performed the quick note portion of this visit, electronically signed Mela Cardona PA-C Patient eloped from waiting room - Lab Data Lab Results 02/13/24 Range/Units 17:07 Urine Opiates Screen Not Detected (NotDetected) Ur Oxycodone Screen Not Detected (NotDetected) Urine Methadone Screen Not Detected (NotDetected) Ur Barbiturates Screen Not Detected (NotDetected) U Tricyclic Antidepress Not Detected (NotDetected) Ur Phencyclidine Scrn Not Detected (NotDetected) Ur Amphetamines Screen Not Detected (NotDetected) U Methamphetamines Scrn Not Detected (NotDetected) U Benzodiazepines Scrn Not Detected (NotDetected) Urine Cocaine Screen Not Detected (NotDetected) U Marijuana (THC) Screen Detected H (NotDetected) Disposition Clinical Impression: Anxiety Disposition: LEFT AGAINST MEDICAL ADVICE Condition: Undetermined Referrals: None,Stated [Primary Care Provider] - 1-2 days
[2024-02-13 17:50] LABS: Amphetamine Screen,Urine Not Detected (NotDetected); Barbiturate Screen,Urine Not Detected (NotDetected); Benzodiazepines Screen,Urine Not Detected (NotDetected); Cocaine Screen,Urine Not Detected (NotDetected); Methadone Screen, Urine Not Detected (NotDetected); Opiate Screen,Urine Not Detected (NotDetected); Oxycodone Screen, Urine Not Detected (NotDetected); Phencyclidine Screen,Urine Not Detected (NotDetected); Tricyclic Antidepressant,Urine Not Detected (NotDetected); Urn Cannabinoid Scrn Detected (NotDetected)
== END 2024-02-13 18:27 | disposition left against medical advice (07) ==
LOC: EC 16:20
CPT/HCPCS: 80306; 99284